=== PATIENT | male | born 1945 | race Caucasian/White ===

== ENCOUNTER → 2016-07-24 08:55 | Outpatient (CLI) | payer MEDICARE ==
[2015-03-02 08:50] VITALS: BMI 33.5
[~2016-07-24 08:55] MED LIST: CELEBREX200 MG PO; CRESTOR20 MG PO; GLUCOPHAGE500 MG PO; HYDROCODONE-APA1 TAB PO; LANTUS INSULIN10 ML SC; METOPROLOL TAR100 M1 PO
== END | disposition home or self-care (01) ==
LOC: D.CT 08:55
DX: I73.9 Peripheral vascular disease, unspecified (principal)

== ENCOUNTER → 2017-03-25 09:49 | Outpatient (CLI) | payer MEDICARE ==
[2015-03-02 08:50] VITALS: BMI 33.5
[2017-03-25 10:59] LABS: ANION GAP 11.8 mmol/L (8-16); CALCIUM 9.3 mg/dL (8.5-10.1); CARBON DIOXIDE 29.3 mmol/L (21.0-32.0); CREATININE - SERUM 1.1 mg/dL (0.6-1.3); POTASSIUM - SERUM 4.1 mmol/L (3.5-5.1)
== END | disposition home or self-care (01) ==
LOC: D.MRI 09:49
PROVIDERS: Family Medicine
DX: N08 Glomerular disorders in diseases classified elsewhere (principal); R42 Dizziness and giddiness

== ENCOUNTER → 2018-01-19 07:36 | Outpatient (CLI) | payer MEDICARE ==
[2015-03-02 08:50] VITALS: BMI 33.5
== END | disposition home or self-care (01) ==
LOC: D.CT 07:36
DX: R16.0 Hepatomegaly, not elsewhere classified (principal)

== ENCOUNTER → 2018-02-17 13:36 | Outpatient (CLI) | payer MEDICARE ==
[2015-03-02 08:50] VITALS: BMI 33.5
[~2018-02-17 13:36] MED LIST changes: +HUMULIN N100 U/ML SC; +HYDROCODON-ACE1 EAC7 PO; +OXYCODONE-APAP1 TAB PO; +PRINIVIL10 MG PO
== END | disposition home or self-care (01) ==
LOC: D.CT 13:36
DX: I70.219 Atherosclerosis of native arteries of extremities with intermittent claudication, unspecified extremity (principal)

== ENCOUNTER 2018-02-18 06:20 | Day surgery (SDC) | payer MEDICARE ==
[2018-02-17 14:34] LABS: HEMATOCRIT 43.9 % (42.0-54.0); HEMOGLOBIN 15.3 g/dL (13.5-17.5); MCH 28.6 pg (26.0-34.0); MCHC 34.9 g/dL (31.0-37.0); MCV 82.1 fL (80.0-100.0); MEAN PLATELET VOLUME 10.1 fL (7.4-10.4); RBC 5.35 10x6/uL (4.20-6.10); RDW 13.1 % (11.5-14.5); WBC 8.5 10x3/uL (4.8-10.8)
[2018-02-17 14:48] LABS: CALC OSMOLALITY 278 mosm/kg (275-300); CALCIUM 9.4 mg/dL (8.5-10.1); CARBON DIOXIDE 22.6 mmol/L (21.0-32.0); CHLORIDE - SERUM 99 mmol/L (98-107); CREATININE - SERUM 0.9 mg/dL (0.6-1.3); POTASSIUM - SERUM 4.1 mmol/L (3.5-5.1); SODIUM 132 mmol/L (136-145); UREA NITROGEN 21 mg/dL (7-18); eGFR NON AFRICAN AMERICAN 88 mL/min (90-120)
[2018-02-17 14:50] LABS: GLUCOSE 303 mg/dL (74-106)
[~2018-02-18] VITALS: Ht 172.7 cm; Wt 96.2 kg
[~2018-02-18 06:20] MED LIST changes: -HYDROCODON-ACE1 EAC7 PO; -PRINIVIL10 MG PO
[2018-02-18 07:38] VITALS: BP 133/74; Ht 172.7 cm; Wt 96.2 kg
[2018-02-18] MEDS ORDERED: PRINIVIL10 MG PO (07:56)
[2018-02-18] MEDS ORDERED: HYDROCODON-ACE1 EAC7 PO (10:11)
== END 2018-02-18 14:10 | disposition home or self-care (01) ==
LOC: D.PAN 06:20 → D.OPS 09:30 → D.PAN 14:10
PROVIDERS: Anesthesiology
DX: K80.10 Calculus of gallbladder with chronic cholecystitis without obstruction (principal); K76.0 Fatty (change of) liver, not elsewhere classified; Z01.812 Encounter for preprocedural laboratory examination

== ENCOUNTER 2018-03-03 10:43 | Outpatient (CLI) | payer MEDICARE ==
[~2018-03-03] VITALS: Ht 172.7 cm; Wt 97.3 kg
--- NOTE | ~2018-03-03 | OP ---
PATIENT NAME: CRISTIAN VENEGAS MEDICAL RECORD: [id number] :47 LOCATION:D.CAT ADMISSION DATE: SURGEON: ANIL GASCA MD DATE OF OPERATION: 03/03/2018 PROCEDURE: AFRO DESCRIPTION: Right femoral artery was cannulated via modified Seldinger technique. The pigtail catheter was placed just superior to the level of the renal arteries. Abdominal aortofemoral runoff was performed, nonselective. Renal artery showed no significant stenosis. The aorta itself showed no evidence of dissection and no evidence of aneurysm. Iliac system; right internal iliac system shows calcified wall disease with no flow obstructive stenosis. Right common, deep, and superficial femoral artery all shows wall disease with some calcification, but no significant stenosis and 2-vessel runoff. Left system; left iliac system including internal and external showed no evidence of significant stenosis. Left femoral system; left deep and common femoral system shows no evidence of stenosis. Left superficial shows marked calcification and wall disease with no stenosis being greater than 40%. There is good 2-vessel runoff as well. IMPRESSION: Obstructive peripheral vascular disease. Suspect pain is neuropathic in origin. TRANSINT:[id number] Voice Confirmation ID: [id number] DOCUMENT ID: [id number] ANIL GASCA MD CC: [id number] DICTATION DATE: 03/03/18 1348 STAFFING EXECUTIVE: 03/03/18 1628 DEP CLI 03/03/18 [address] [place] [address]
--- NOTE | ~2018-03-03 | HEMODYNAMI ---
PATIENT:CRISTIAN VENEGAS MEDICAL RECORD: [id number] : 47 LOCATION:D.CAT ADMISSION DATE: 03/03/18 Generatedon:03/03/201813:41 Patient name: CRISTIAN VENEGAS Patient #: [id number] SSN: DO B: 1945 Date of study: 03/03/2018 Page: Of Hemodynamic Procedure Report Patient Data Patient Demographics Procedure consent was obtained First Name: CRISTIAN Gender: Male Last Name: RUBI : 1945 Middle Initial: DERECK Age: 72 year(s) Patient #: [id number] Race: Unknown Additional ID: [id number] Contact details Address: [address] [address] State: [place] City: [place] Zip code: [address] Past Medical History Allergies Allergen Reaction Date Comments Reported Penicillins 03/03/2018 Admission Admission Data Admission Date: 03/03/2018 Admission Time: 10:43 Height (in.): 68 BSA: 2.1 (m2) Height (cm.): 172.72 BMI: 32.23 (kg/m2) Weight (lbs.): 212 Weight (kg.): 96.16 Procedure Procedure Types Cath Procedure Peripheral Cath Diagnostic Procedure Accounts Manager Peripheral Procedures Gmwqg-Ezlaipx-Lcd-Off Procedure Description Procedure Date Procedure Date: 03/03/2018 Procedure Start Time: 13:31 Procedure End Time: 13:38 Procedure Staff Name Function Rob Johnson MD Performing Physician Era Kinney RT Monitor Milana Soto RT Scrub Sanjay Mitchell RN Nurse Procedure Data Cath Procedure Fluoroscopy Diagnostic fluoroscopy Total fluoroscopy Time: 0.2 time: 0.2 min min Diagnostic fluoroscopy Total fluoroscopy dose: 87 dose: 87 mGy mGy Contrast Material Contrast Material Type Amount (ml) Isovue 300 48 Entry Location Entry Primary Successful Side Size Upsize Upsize Entry Closure Succes sful Closure Location (Fr) 1 (Fr) 2 (Fr) Remarks Device Remarks Femoral Right 5 Fr Exoseal artery Estimated blood loss: 10 ml Diagnostic catheters Device Type Used For End Catheter Placement DIAGNOSTIC UF 5Fr Abdominal catheter ([id number]) aortogram with runoff Procedure Complications No complications Procedure Medications Medication Administration Route Dosage 0.9% NaCl I.V. 100 ml/hr Oxygen etCO2 Nasal cannula 2 l/min Heparin Flush Bag added to field 2 bags (1000units/500ml NS) Lidocaine 2% added to field 20 Versed I.V. 2 mg Fentanyl I.V. 100 mcg Versed I.V. 1 mg Hemodynamics Rest BSA: 2.1 (m2) O2 Consumption: Estimated: 268.63 (ml/min) O2 Consumption indexed: Estimated:127.92 (ml/min/m) Heart Rate: 103 (bpm) Snapshots Pre Cath Intra NCS Post Cath Vital Signs Time Heart Resp SPO2 etCO2 NIBP (mmHg) Rhythm Pain Sedation Rate (ipm) (%) (mmHg) Status Level (bpm) 13:20:22 101 15 99 33.2 139/86(112) NSR 0 (11) 10(A) , No pain 13:24:30 101 13 99 34.7 150/91(116) NSR 0 (11) 10(A) , No pain 13:28:40 101 15 99 37 143/87(108) NSR 0 (11) 10(A) , No pain 13:32:48 101 14 99 37.7 135/87(108) NSR 0 (11) 10(A) , No pain 13:36:56 104 19 100 30.9 149/88(109) NSR 0 (11) 10(A) , No pain Medications Time Medication Route Dose Verified Delivered Reason Notes Eff ectiveness by by 13:18:43 0.9% NaCl I.V. 100 Sanjay Sanjay Per ml/hr Stephen Mitchell physician RN RN 13:18:52 Oxygen etCO2 2 Sanjay Sanjay Per Nasal l/min Loryeni Mitchell physician cannula RN RN 13:19:05 Heparin Flush added 2 Sanjay Sanjay used for Bag to bags Sueigan Stephen procedure (1000units/500ml field RN RN NS) 13:19:16 Lidocaine 2% added 20ml Sanjay Sanjay for local to vial Lorigan Lorigan anesthetic field RN RN 13:25:27 Versed I.V. 2 mg Sanjay Sanjay for Lorigan Lorigan sedation RN RN 13:25:40 Fentanyl I.V. 100 Sanjay Sanjay for mcg Stephen Mitchell sedation RN RN 13:30:41 Versed I.V. 1 mg Sanjay Grace for Stephen Mitchell sedation RN digital marketing lead Log Time Note 12:55:50 Sanjay Mitchell RN sent for patient. Start room use. 13:00:42 Time tracking: Regular hours (M-F 7:00 - 5:00) 13:00:46 Plan of Care:Hemodynamics will remain stable., Cardiac rhythm will remain stable., Comfort level will be maintained., Respiratory function will remain adequate., Patient/ family verbilizes understanding of procedure., Procedure tolerated without complication., Recovers from procedure without complications.. 13:00:47 Diagnostic Cath status Elective 13:00:48 Signed procedure consent form obtained from patient. 13:01:13 H&P Date Dictated: 02/05/2018 Within 30 days and on chart., H&P Addendum completed by physician on day of procedure. (MUST COMPLETE FOR ALL OUTPATIENTS). 13:01:29 Patient allergic to Penicillins 13:01:36 Patient Height : 68 inches 13:01:39 Patient Weight : 212 lbs 13:07:28 Patient received from Pre/Post Procedure Room to [facility] 2 Alert and oriented. Tansferred to table in Supine position. 13:07:29 Warm blankets applied, and spencer hugger turned on for patient comfort. 13:07:29 Correct patient and procedure confirmed by team. 13:07:31 ECG and BP/O2 sat monitors applied to patient. 13:18:43 0.9% NaCl 100 ml/hr I.V. was administered by Sanjay Mitchell RN; Per physician; 13:18:52 Oxygen 2 l/min etCO2 Nasal cannula was administered by Sanjay Mitchell RN; Per physician; 13:19:05 Heparin Flush Bag (1000units/500ml NS) 2 bags added to field was administered by Sanjay Mitchell RN; used for procedure; 13:19:16 Lidocaine 2% 20ml vial added to field was administered by Sanjay Mitchell RN; for local anesthetic; 13:19:20 Vital chart was started 13:21:56 Baseline sample Acquired. 13:22:02 Rhythm: sinus rhythm 13:22:04 Full Disclosure recording started 13:22:09 Patient NPO since Midnight. 13:22:13 Is the patient allergic to Iodine/contrast media? No. 13:22:29 Patient diabetic? Yes. 13:22:31 If diabetic: On Metformin? Yes 13:22:35 If on Metformin: Last Dose? 02/27/2018 13:22:46 Snore? No 13:22:48 Sleep apnea? No 13:22:55 Dentures? Yes out 13:23:10 IV patent on arrival in left forearm with 0.9% NaCl at [facility]. 13:23:14 Lab results completed and on chart. 13:23:20 Bilateral groins area was prepped with chlora-prep and draped in sterile fashion 13:23:21 Alarms reviewed by R. N. 13:23:21 Sharps counted by scrub and verified by R.N. 13:23:22 Physician paged 13:23:23 Physician arrived 13:23:25 --------ALL STOP TIME OUT------ 13:23:26 Final Timeout: patient, procedure, and site verified with staff and physician. All members of the team are in agreement. 13:23:28 Bilateral groins site verified by team. 13:23:32 Physical assessment completed. ASA score P 2 - A patient with mild systemic disease as per Rob Johnson MD. 13:23:35 Sedation plan: IV Moderate Sedation Medication:Versed, Fentanyl 13:25:27 Versed 2 mg I.V. was administered by Sanjay Mitchell RN; for sedation; 13:25:40 Fentanyl 100 mcg I.V. was administered by Sanjay Mitchell RN; for sedation; 13:27:08 Use device set Femoral Dx 13:27:10 ACIST Syringe (01598) opened to sterile field. 13:27:11 Bag Decanter (2002) opened to sterile field. 13:27:12 Medline Cath Pack ([id number]) opened to sterile field. 13:27:13 DIAGNOSTIC WIRE .035 260cm J wire (536861) opened to sterile field. 13:27:14 ACIST Hand Control (70198) opened to sterile field. 13:27:15 ACIST Manifold (94870) opened to sterile field. 13:27:21 Tegaderm 4 x 4 (1626W) opened to sterile field. 13:27:25 SHEATH 5FR [place] (VAB924) opened to sterile field. 13:29:41 Procedure started. 13:30:41 Versed 1 mg I.V. was administered by Sanjay Mitchell RN; for sedation; 13:31:00 Local anesthetic to right femoral artery with Lidocaine 2% by Rob Johnson MD.INITIAL ACCESS ONLY 13:31:20 A 5 Fr sheath was inserted into the Right Femoral artery 13:32:07 A DIAGNOSTIC UF 5Fr catheter ([id number]) was advanced over the wire and used for Abdominal aortogram with runoff. 13:34:47 Abdominal angiogram w/ runoff was performed. 13:34:51 Left leg runoff performed. 13:34:52 Right leg runoff performed. 13:35:16 EXOSEAL 5Fr (EX500) opened to sterile field. 13:35:26 Sheath removed intact; hemostasis achieved with Exoseal to the Right Femoral artery. 13:35:30 Procedure ended.(Physican Out) 13:35:46 Fluoroscopy time 00.20 minutes. 13:35:50 Fluoroscopy dose: 87 mGy 13:35:50 Flurop Dose total: 87 13:35:54 Contrast amount:Isovue 300 48ml. 13:35:56 Sharps counted by scrub and verified by R.N. 13:36:17 Insertion/operative site no bleeding no hematoma. 13:36:21 Post-op/insertion site Right Femoral artery dressed using a 4 x 4 and Tegaderm. 13:36:22 Post Procedure Pulses reassessed and unchanged 13:36:27 Post-procedure physical assessment completed. ASA score P 2 - A patient with mild systemic disease as per Rob Johnson MD. 13:36:30 Post procedure rhythm: unchanged. 13:36:33 Estimated blood loss: 10 ml 13:36:35 Post procedure instruction explained to patient.Patient verbalizes understanding. 13:36:45 Procedure and supply charges have been captured, reviewed, submitted and are correct. 13:37:56 Procedure Complication : No complications 13:37:59 Vital chart was stopped 13:38:00 See physician's report for complete and final results. 13:38:08 Report given to Pre/Post Procedure Room. 13:38:11 Patient transfered to Pre/Post Procedure Room with Stretcher. 13:38:14 Procedure ended. 13:38:14 Full Disclosure recording stopped 13:38:20 End room use (Document Last) Device Usage Item Name Manufacture Quantity Catalog Hospital Part Current Minimal L ot# / Number Charge Number Stock Stock Serial# Code ACIST Acist 1 [id number] 534647 [id number] 20 Syringe Medical (98970) Systems Inc Bag Microtek 1 2001S [id number] 44508 254331 5 Decanter Medical Inc. () Medline Medline 1 [id number] 955385 54210 150173 5 Cath Pack ([id number]) DIAGNOSTIC St Cedric 1 764311 799573 948270 220203 30 WIRE .035 260cm J wire (052224) ACIST Hand Acist 1 12882 300118 894628 211698 5 Control Medical (51972) Systems Inc ACIST Acist 1 11523 308702 192913 780590 5 Manifold Medical (03182) Systems Inc Tegaderm 4 3M 1 1626W 432298 029464 242766 5 x 4 (1626W) SHEATH 5FR Terumo 1 [id number] 537624 498247 517972 5 [place] (HLA226) DIAGNOSTIC Cardinal 1 [id number] 296803 719169 552189 10 UF 5Fr Health catheter (348023F8) EXOSEAL 5Fr Cardinal 1 EX500 549947 097554 638502 10 (EX500) Health Signature Audit [place] Stage Time Signature Unsigned Intra-Procedure 03/03/2018 Era Kinney 1:41:18 PM RT(R) Signatures Monitor : Era Kinney Signature : RT Date : Time : [facility] [address] [facility] [place] [address]
[~2018-03-03 10:43] MED LIST changes: +HYDROCODON-ACE1 EAC7 PO; +PRINIVIL10 MG PO
[2018-03-03] MEDS ORDERED: PROTONIX40 MG PO (11:13)
[2018-03-03] MEDS ORDERED: CELEBREX200 MG (11:14)
[2018-03-03] MEDS ORDERED: CRESTOR20 MG PO (11:15)
[2018-03-03] MEDS ORDERED: CYCLOBENZAPRINE10 MG PO (11:16)
[2018-03-03 11:26] VITALS: BP 159/85; Ht 172.7 cm; Wt 97.3 kg
[2018-03-03 11:33] LABS: BASOPHILS 0.6 % (0-2); EOSINOPHILS 5.1 % (0-7); HEMOGLOBIN 14.9 g/dL (13.5-17.5); IMMATURE GRANULOCYTES 0.8 % (0-5); LYMPHOCYTES 29.4 % (15-50); MCH 28.4 pg (26.0-34.0); MCHC 34.7 g/dL (31.0-37.0); MCV 82.1 fL (80.0-100.0); MEAN PLATELET VOLUME 9.9 fL (7.4-10.4); MONOCYTES 6.7 % (2-11); NEUTROPHILS 57.4 % (40-80); RBC 5.24 10x6/uL (4.20-6.10); RDW 13.3 % (11.5-14.5); WBC 9.1 10x3/uL (4.8-10.8)
[2018-03-03 11:34] LABS: PLATELET COUNT 245 10x3/uL (130-400)
[2018-03-03 11:47] LABS: CALC OSMOLALITY 276 mosm/kg (275-300); CARBON DIOXIDE 27.9 mmol/L (21.0-32.0); CHLORIDE - SERUM 101 mmol/L (98-107); CREATININE - SERUM 0.9 mg/dL (0.6-1.3); GLUCOSE 121 mg/dL (74-106); POTASSIUM - SERUM 3.7 mmol/L (3.5-5.1); SODIUM 138 mmol/L (136-145); UREA NITROGEN 12 mg/dL (7-18); eGFR NON AFRICAN AMERICAN 88 mL/min (90-120)
== END 2018-03-03 15:55 | disposition home or self-care (01) ==
LOC: D.CATH 10:43
PROVIDERS: Internal Medicine Interventional Cardiology
DX: I70.203 Unspecified atherosclerosis of native arteries of extremities, bilateral legs (principal); Z01.812 Encounter for preprocedural laboratory examination

== ENCOUNTER → 2018-04-23 10:41 | Outpatient (CLI) | payer MEDICARE ==
[2018-03-03 11:26] VITALS: BMI 32.6
[~2018-04-23 10:41] MED LIST changes: +CELEBREX200 MG; +CYCLOBENZAPRINE10 MG PO; +PROTONIX40 MG PO
== END | disposition home or self-care (01) ==
LOC: D.CT 10:41
DX: R91.8 Other nonspecific abnormal finding of lung field (principal)

== ENCOUNTER 2018-06-30 10:51 | Day surgery (SDC) | payer MEDICARE ==
[~2018-06-30] VITALS: Ht 172.7 cm; Wt 91.8 kg
--- NOTE | ~2018-06-30 | HP ---
PATIENT: CRISTIAN VENEGAS MEDICAL RECORD: [id number] ACCOUNT: [id number] LOCATION:OmarDaveJERROD : 47 ADMISSION DATE: 06/30/18 PCP: RODRIGO KELLY DO HISTORY AND PHYSICAL EXAMINATION HISTORY OF PRESENT ILLNESS: The patient is here for colonoscopy. The patient was found to have a complex polyp in the proximal transverse colon, distance from 70 to 75 cm from the anus. Cold biopsies revealed a tubulovillous adenoma. The patient was referred to me. I am going to plan for colonoscopy and polypectomy, perhaps utilizing the endoscopic mucosal resection technique or the argon plasma granite setter or both. The risks, possible complications and alternatives to the procedure were explained to the patient. He elects to proceed. HOME MEDICATIONS: Please see the nursing list. ALLERGIES: PENICILLIN, GABAPENTIN, LYRICA. SOCIAL HISTORY: Ex-smoker. PAST MEDICAL AND SURGICAL HISTORY: Hypertension, CABG, gastroesophageal reflux, insulin-dependent diabetes mellitus, arthritis. PHYSICAL EXAMINATION: GENERAL: The patient does not appear acutely ill. He does not appear chronically ill. VITAL SIGNS: Reviewed. EARS: External ears appear normal. EYES: Extraocular movements are intact. NECK: Trachea is midline. CHEST: No intercostal retractions. PULMONARY: Nonlabored, no stridor. IMPRESSION: History of complex polyp involving the proximal transverse colon. PLAN: As described above. TRANSINT:[id number] Voice Confirmation ID: [id number] DOCUMENT ID: [id number] ANN MARIE PATRICK MD CC: RODRIGO KELLY DO and JESUS THOMAS DO [id number] DICTATION DATE: 06/30/18 1417 FEEDER OPERATOR AUTOMATIC: 06/30/18 1429 [address] [place] [address]
--- NOTE | ~2018-06-30 | OP ---
PATIENT NAME: CRISTIAN VENEGAS MEDICAL RECORD: [id number] :47 LOCATION:D.OPS ADMISSION DATE: SURGEON: ANN MARIE PATRICK MD DATE OF OPERATION: 06/30/2018 PREOPERATIVE DIAGNOSIS: History of complex colon polyp in the proximal transverse colon. POSTOPERATIVE DIAGNOSES: History of complex colon polyp in the proximal transverse colon with a secondary polyp in the descending colon that was a 1.2 cm sessile polyp. PROCEDURES: 1. Total colonoscopy to cecum. 2. Polypectomy utilizing the endoscopic mucosal resection technique of a 3.0 cm polyp on a fold. There was epinephrine submucosal injection as well as injection of Eleview and placement of 3 clips for hemostasis. 3. Hot biopsy forceps, polypectomy times 1. SURGEON: Ann Marie Patrick MD COTTON OPENER: None. BLOOD LOSS: Minimal. ANESTHESIA: IV sedation. COMPLICATIONS: None. The risks, possible complications and alternatives to the procedure were explained to the patient. He elects to proceed. ENDOSCOPIC COURSE: The patient was conveyed to endoscopy suite electively on 06/30/2018. IV sedation was induced by the anesthesia staff. The patient was placed in the Mora position. A digital rectal examination was performed. 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 The colonoscope was advanced easily to the cecum. The prep was marginal. I then slowly withdrew the endoscope. I irrigated and aspirated. The pullback was greater than a 30-minute pullback. I dragged the folds. I noted the tattooed polyp in the proximal transverse colon. I advanced a sclerotherapy needle. A submucosal injection of epinephrine was performed for post-procedural hemostasis. Through the sclerotherapy needle, I then injected Eleview to get the polyp to lift away and there was a good lift to the polyp under this Eleview pillow. An endoscopic snare was advanced. I snared the polyp in its entirety utilizing a snare twice. I then utilized the argon plasma car porter to ablate a tiny bit of polypoid tissue that remained. This was utilizing the argon plasma car porter with the right colon setting in the forced mode. I then set down a row of 3 endoscopic clips for hemostasis. I then gathered up the portion of the polyp with an endoscopic retrieval net and withdrew them out through the anus. I then readvanced the endoscope up through the anus and back to the polypectomy site. I then slowly withdrew the endoscope. I noted a secondary polyp in the descending colon and this was removed in its entirety utilizing the hot biopsy forceps polypectomy technique. The endoscope was then withdrawn under direct vision. OPERATIVE REPORT [id number] CRISTIAN VENEGAS I am going to see the patient in my office in 2-3 weeks. I will plan for his next colonoscopy to take place in 1 year. TRANSINT:[id number] Voice Confirmation ID: [id number] DOCUMENT ID: [id number] ANN MARIE PATRICK MD CC: RODRIGO KELLY DO and JESUS THOMAS DO [id number] DICTATION DATE: 06/30/18 1524 B2B APPOINTMENT SETTER: 06/30/18 1618 [facility] [place] 06/30/18 [id number] [place] [address]
[2018-06-30 11:12] LABS: HEMATOCRIT 45.4 % (42.0-54.0); HEMOGLOBIN 15.7 g/dL (13.5-17.5); MCH 28.5 pg (26.0-34.0); MCHC 34.6 g/dL (31.0-37.0); MCV 82.5 fL (80.0-100.0); MEAN PLATELET VOLUME 10.2 fL (7.4-10.4); RBC 5.5 10x6/uL (4.20-6.10); RDW 13.3 % (11.5-14.5); WBC 9.2 10x3/uL (4.8-10.8)
[2018-06-30 11:21] LABS: ANION GAP 12.2 mmol/L (8-16); CALCIUM 9.3 mg/dL (8.5-10.1); CARBON DIOXIDE 29.1 mmol/L (21.0-32.0); CREATININE - SERUM 1.3 mg/dL (0.6-1.3); POTASSIUM - SERUM 4.3 mmol/L (3.5-5.1)
[2018-06-30 11:53] VITALS: BP 125/72; Ht 172.7 cm; Wt 91.8 kg
--- NOTE | 2018-06-30 14:56 | NUR ---
1450-INJECTED 10CC ELEVIEW CUTANEOUS IN COLON.
--- NOTE | 2018-06-30 16:14 | NUR ---
DC INSTRUCTIONS GIVEN TO PT/JOSE, STATE UNDERSTANDIG. DC'D IV CATH FULLY INTACT.
--- NOTE | 2018-06-30 16:19 | NUR ---
PT LEFT UNIT VIA WC AT 1620
== END 2018-06-30 16:20 | disposition home or self-care (01) ==
LOC: D.OPS 10:51
PROVIDERS: Anesthesiology; ATTEND Surgery
DX: D12.3 Benign neoplasm of transverse colon (principal); D12.4 Benign neoplasm of descending colon; Z01.812 Encounter for preprocedural laboratory examination

== ENCOUNTER → 2018-08-07 07:35 | Outpatient (CLI) | payer MEDICARE ==
[2018-06-30 11:53] VITALS: BMI 30.7
== END | disposition home or self-care (01) ==
LOC: D.NM 07:35
PROVIDERS: ATTEND Internal Medicine Gastroenterology
DX: R10.9 Unspecified abdominal pain (principal); R11.0 Nausea; R14.0 Abdominal distension (gaseous)

== ENCOUNTER 2018-10-11 15:55 | Emergency (ER) | payer MEDICARE, MEDICAID ==
[~2018-10-11] VITALS: Ht 172.7 cm; Wt 94.5 kg
[2018-10-11 15:56] VITALS: Ht 172.7 cm; Wt 94.5 kg
[2018-10-11 16:19] LABS: BASOPHILS 0.5 % (0-2); EOSINOPHILS 2.4 % (0-7); HEMATOCRIT 42.2 % (42.0-54.0); IMMATURE GRANULOCYTES 0.9 % (0-5); LYMPHOCYTES 34.2 % (15-50); MCH 28.8 pg (26.0-34.0); MCHC 35.5 g/dL (31.0-37.0); MONOCYTES 6.1 % (2-11); NEUTROPHILS 55.9 % (40-80); PLATELET COUNT 223 10x3/uL (130-400); RBC 5.21 10x6/uL (4.20-6.10); RDW 13.2 % (11.5-14.5)
[2018-10-11 16:41] LABS: ALBUMIN 3.6 g/dL (3.4-5.0); ANION GAP 16.1 mmol/L (8-16); BILIRUBIN - TOTAL 0.99 mg/dL (0.2-1.3); CALCIUM 8.7 mg/dL (8.5-10.1); CREATININE - SERUM 1.4 mg/dL (0.6-1.3); POTASSIUM - SERUM 4.1 mmol/L (3.5-5.1); PROTEIN - SERUM 8.1 g/dL (6.4-8.2)
[2018-10-11 16:42] LABS: APPEARANCE CLEAR (CLEAR); COLOR YELLOW (YELLOW); NITRITE NEGATIVE (NEGATIVE); PROTEIN NEGATIVE (NEGATIVE)
[2018-10-11 16:43] LABS: BILIRUBIN NEGATIVE (NEGATIVE); GLUCOSE 1000 mg/dL (NEGATIVE); KETONE NEGATIVE (NEGATIVE); UROBILINOGEN NORMAL (NORMAL)
[2018-10-11 18:15] VITALS: BP 157/90
[2018-10-11] MEDS ORDERED: ZPAK PO (18:25)
[2018-10-11] MEDS ORDERED: TESSALON PERLE100 MG PO (18:25)
== END 2018-10-11 19:03 | disposition home or self-care (01) ==
LOC: D.ER 15:55
PROVIDERS: Family Medicine
DX: J40 Bronchitis, not specified as acute or chronic (principal); E11.65 Type 2 diabetes mellitus with hyperglycemia; Z79.4 Long term (current) use of insulin

== ENCOUNTER 2018-10-19 14:09 | Inpatient (IN) | payer MEDICARE, MEDICAID ==
[~2018-10-19] VITALS: Ht 172.7 cm; Wt 94.3 kg
[~2018-10-19 14:09] MED LIST changes: +TESSALON PERLE100 MG PO; +ZPAK PO
[2018-10-19] MEDS ORDERED: CELEBREX 100 M100 MG PO (14:23)
--- NOTE | 2018-10-19 14:32 | NUR ---
ARRIVE TO ROOM 2237 AWAKE AND ALERT. RESP EVEN AND UNLABORED WITH NO DISTRESS NOTED. CAN EXPRESS NEEDS AND WANTS. NO C/O NOTED OR VOICED. C/O RICHARD FEET PAIN RATING 8/10 ON PAIN SCALE. C/L IN REACH AT BEDSIDE.
[2018-10-19 14:54] LABS: BASOPHILS 0.3 % (0-2); EOSINOPHILS 1.1 % (0-7); HEMATOCRIT 37.6 % (42.0-54.0); HEMOGLOBIN 13.2 g/dL (13.5-17.5); IMMATURE GRANULOCYTES 1.6 % (0-5); LYMPHOCYTES 23.2 % (15-50); MCH 28.4 pg (26.0-34.0); MCHC 35.1 g/dL (31.0-37.0); MCV 80.9 fL (80.0-100.0); MEAN PLATELET VOLUME 9.6 fL (7.4-10.4); MONOCYTES 8.9 % (2-11); NEUTROPHILS 64.9 % (40-80); RBC 4.65 10x6/uL (4.20-6.10); RDW 13.1 % (11.5-14.5); WBC 11.3 10x3/uL (4.8-10.8)
[2018-10-19 15:18] LABS: ANION GAP 17.2 mmol/L (8-16); BILIRUBIN - TOTAL 0.68 mg/dL (0.2-1.3); CALCIUM 7.9 mg/dL (8.5-10.1); CARBON DIOXIDE 21.7 mmol/L (21.0-32.0); CREATININE - SERUM 1.2 mg/dL (0.6-1.3); POTASSIUM - SERUM 3.9 mmol/L (3.5-5.1); PROTEIN - SERUM 7.1 g/dL (6.4-8.2)
[2018-10-19 15:24] LABS: PLATELET COUNT 287 10x3/uL (130-400)
[2018-10-19 17:42] VITALS: BP 144/78; BMI 31.6
--- NOTE | 2018-10-19 18:30 | NUR ---
ALERT AND ORIENTED, RESTING IN BED. NO C/O PAIN. NO S/S OF ACUTE DISTRESS NOTED. PT DENIES ANY NEEDS AT THIS TIME. CALL LIGHT IN REACH. WILL CONTINUE TO MONITOR.
--- NOTE | 2018-10-19 20:00 | NUR ---
ALERT RESTING IN BED FAMILY AT BEDSIDE, REDDENED AREA NOTED TO LEFT OUTER FOOT, REPORTS PAINFUL, SEE SHIFT ASSESSMENT, CALL LIGHT IN REAC
[2018-10-19 21:44] VITALS: BP 123/67
[2018-10-20 01:11] VITALS: BP 93/50
[2018-10-20 05:08] LABS: BASOPHILS 0.4 % (0-2); EOSINOPHILS 2.6 % (0-7); HEMATOCRIT 35.7 % (42.0-54.0); HEMOGLOBIN 12.4 g/dL (13.5-17.5); IMMATURE GRANULOCYTES 1.7 % (0-5); MCH 28.2 pg (26.0-34.0); MCHC 34.7 g/dL (31.0-37.0); MCV 81.3 fL (80.0-100.0); MEAN PLATELET VOLUME 9.7 fL (7.4-10.4); NEUTROPHILS 55.3 % (40-80); PLATELET COUNT 267 10x3/uL (130-400); RBC 4.39 10x6/uL (4.20-6.10); RDW 13.2 % (11.5-14.5)
[2018-10-20 05:18] LABS: ALBUMIN 2.3 g/dL (3.4-5.0); ANION GAP 12.9 mmol/L (8-16); BILIRUBIN - TOTAL 0.71 mg/dL (0.2-1.3); CALCIUM 7.7 mg/dL (8.5-10.1); CARBON DIOXIDE 24.9 mmol/L (21.0-32.0); CREATININE - SERUM 1.1 mg/dL (0.6-1.3); POTASSIUM - SERUM 3.8 mmol/L (3.5-5.1); PROTEIN - SERUM 6.3 g/dL (6.4-8.2)
[2018-10-20 05:19] LABS: WBC 8.3 10x3/uL (4.8-10.8)
[2018-10-20 06:23] VITALS: BP 114/59
--- NOTE | 2018-10-20 07:20 | NUR ---
ALERT AND ORIENTED. NO C/O PAIN. NO S/S OF ACUTE DISTRESS NOTED. REDNESS AND WARMTH TO LEFT FOOT. IV TO LEFT FOREARM, NS INFUSING @ 50ML/HR. SITE PATENT WITHOUT REDNESS OR SWELLING. PT ACHS. ON TELEMETRY 101 ST. PT DENIES ANY NEEDS AT THIS TIME. CALL LIGHT IN REACH. WILL CONTINUE TO MONITOR.
[2018-10-20 08:14] LABS: APPEARANCE CLEAR (CLEAR); BILIRUBIN NEGATIVE (NEGATIVE); COLOR YELLOW (YELLOW); GLUCOSE 500 mg/dL (NEGATIVE); KETONE NEGATIVE (NEGATIVE); NITRITE NEGATIVE (NEGATIVE); PROTEIN NEGATIVE (NEGATIVE); SPECIFIC GRAVITY 1.015 (1.005-1.020)
[2018-10-20 08:56] VITALS: BP 115/59
[2018-10-20 12:03] VITALS: BP 91/48
--- NOTE | 2018-10-20 13:32 | NUR ---
PT IS WITHOUT DISTRESS.FAMILY AT BEDSIDE
[2018-10-20 14:30] VITALS: Ht 172.7 cm; Wt 94.3 kg
--- NOTE | 2018-10-20 14:37 | MORECARE ---
CASE MANAGEMENT DISCHARGE SUMMARY PATIENT: CRISTIAN VENEGAS DON UNIT: [id number] ADM DATE: 10/19/18 AGE: 73 : 47 SEX: M ROOM/BED: D.2237 AUTHOR: KIMI OSUNA PHYSICIAN: REFERRING PHYSICIAN: TAMMY NEIL MD DATE OF SERVICE: 10/20/18 Discharge Plan Patient Name: CRISTIAN VENEGAS [facility] [facility] 1945 Planned Disposition: Home with Home Health Anticipated Discharge Date: Discharge Date: Expected LOS: Initial Reviewer: [email or web address] Initial Review Date: 10/21/2018 Generated: 10/20/18 3:37 pm DCPIA - Discharge Planning Initial Assessment Updated by [email or web address]: Lore Hernandez on 10/20/18 2:32 pm * Is the patient Alert and Oriented? Yes * How many steps to enter\exit or inside your home? 5/0 * PCP Dr. Sesay * Pharmacy [facility] on [address] * Preadmission Environment Home Alone * ADLs Independent * Equipment Cane Glucometer Power Chair or Electric Scooter Wheelchair * List name and contact numbers for known caregivers / representatives who currently or will assist patient after discharge: Shavonne Wagner [facility] - [phone] [facility] [phone] * Verbal permission to speak to the caregivers and representatives has been obtained from the patient. Yes * Community resources currently utilized None * Additional services required to return to the preadmission environment? No * Can the patient safely return to the preadmission environment? Yes * Has this patient been hospitalized within the prior 30 days at any hospital? No Patient Name: CRISTIAN VENEGAS Page [id number] at 1437 All edits/amendments must be made on the electronic document DICTATION DATE: 10/20/181436 SPOTTER DRIVER: ERICA 10/20/181436 RPT#: [id number] DC DATE: STATUS: ADM IN [facility] [address] [place] [address] END OF REPORT
--- NOTE | 2018-10-20 14:44 | MORECARE ---
CASE MANAGEMENT DISCHARGE SUMMARY PATIENT: CRISTIAN VENEGAS UNIT: [id number] ADM DATE: 10/19/18 AGE: 73 : 46 SEX: M ROOM/BED: D.2237 AUTHOR: ENRRIQUE,DOC PHYSICIAN: REFERRING PHYSICIAN: TAMMY NEIL MD DATE OF SERVICE: 10/20/18 Discharge Plan Patient Name: CRISTIAN VENEGAS Facility: [facility]:[place] : 1945 Planned Disposition: Home with Home Health Anticipated Discharge Date: Discharge Date: Expected LOS: Initial Reviewer: [email or web address] Initial Review Date: 10/21/2018 Generated: 10/20/18 3:44 pm Comments DCP- Discharge Planning Updated by [email or web address]: Lore Hernandez on 10/20/18 1:[address] Patient Name: CRISTIAN VENEGAS Admission Status: Elective Accout number: [id number] Admission Date: 10-19-2018 : 1945 Admission Diagnosis: Attending: TAMMY NEIL Current LOS: 1 Anticipated DC Date: Planned Disposition: Home with Home Health Primary Insurance: [facility] [employer] Discharge Planning Comments: CM met with patient to discuss discharge planning/needs, his 2 daughters and son in law are in the room and verbal permission received to discuss discharge planning with his family present. He lives at [address] [place] [address] in [place]. He has a cane, walker, and electric scooter that he states he does not use. He has a glucometer and checks his blood sugar 4 times a day. He lives alone and has been independent with all ADL's and AIDL's. He states that his family would like him to have home health. His daughter (Shavonne) states that he needs med box management and disease education. She states she doesn't feel like he eats "the right foods". PAUL for [facility] signed and clinical faxed. [facility] does not take his insurance, referral to [facility]. CM will continue to follow and assist with discharge planning/needs. Web Development Manager: Lore Hernandez DCPIA - Discharge Planning Initial Assessment Updated by [email or web address]: Lore Hernandez on 10/20/18 2:32 pm * Is the patient Alert and Oriented? Yes * How many steps to enter\\exit or inside your home? 5/0 * PCP Dr. Sesay * Pharmacy [facility] on [address] * Preadmission Environment Home Alone * ADLs Independent * Equipment Cane Glucometer Power Chair or Electric Scooter Wheelchair * List name and contact numbers for known caregivers / representatives who currently or will assist patient after discharge: Shavonne Wagner [facility] - [phone] Miranda Wagner [facility] - [phone] * Verbal permission to speak to the caregivers and representatives has been obtained from the patient. Yes * Community resources currently utilized None * Additional services required to return to the preadmission environment? No * Can the patient safely return to the preadmission environment? Yes * Has this patient been hospitalized within the prior 30 days at any hospital? No Coverage Notice Reviewer: [email or web address] Marly Hernandez Notice Issued Date-Time: 10/20/2018 14:42 Notice Type: Patient Choice Letter Notice Delivered To: Patient Relationship to Patient: Self Washing And Screening Plant Supervisor Name: Delivery Method: - Omayra Days: Prior Verbal Notification: Recipient Understood Notice: Recipient Signature: Med Rec Note Co-signed by Attending: Coverage Notice Comment: Last DP export: 10/20/18 1:37 p Patient Name: CRISTIAN VENEGAS Page [phone] at 1444 All edits/amendments must be made on the electronic document DICTATION DATE: 10/20/181443 NARRATIVE WRITER: ERICA 10/20/18 1444 RPT#: [id number] DC DATE: STATUS: ADM IN [facility] [address] [place] [address] END OF REPORT
--- NOTE | 2018-10-20 14:53 | MORECARE ---
CASE MANAGEMENT DISCHARGE SUMMARY PATIENT: CRISTIAN VENEGAS UNIT: [id number] ADM DATE: 10/19/18 AGE: 73 : [birth year] SEX: M ROOM/BED: D.2237 AUTHOR: ENRRIQUE,DOC PHYSICIAN: REFERRING PHYSICIAN: TAMMY NEIL MD DATE OF SERVICE: 10/20/18 Discharge Plan Patient Name: CRISTIAN VENEGAS Facility: [facility]:[place] : 1945 Planned Disposition: Home with Home Health Anticipated Discharge Date: Discharge Date: Expected LOS: Initial Reviewer: [email or web address] Initial Review Date: 10/21/2018 Generated: 10/20/18 3:52 pm Comments DCP- Discharge Planning Updated by [id number]: Lore Hernandez on 10/20/18 1:[address] Patient Name: CRISTIAN VENEGAS Admission Status: Elective Accout number: [id number] Admission Date: 10-19-2018 : 1945 Admission Diagnosis: Attending: TAMMY NEIL Current LOS: 1 Anticipated DC Date: Planned Disposition: Home with Home Health Primary Insurance: [facility] MEDICARE SOLUTIONS Discharge Planning Comments: CM met with patient to discuss discharge planning/needs, his 2 daughters and son in law are in the room and verbal permission received to discuss discharge planning with his family present. He lives at [address] [place] [address] in [place]. He has a cane, walker, and electric scooter that he states he does not use. He has a glucometer and checks his blood sugar 4 times a day. He lives alone and has been independent with all ADL's and AIDL's. He states that his family would like him to have home health. His daughter (Shavonne) states that he needs med box management and disease education. She states she doesn't feel like he eats "the right foods". [facility] for [facility] signed and clinical faxed. [facility] does not take his insurance, referral to [facility]. CM will continue to follow and assist with discharge planning/needs. Magnetic Tape Typewriter Operator: Lore Hernandez DCPIA - Discharge Planning Initial Assessment Updated by [email or web address]: Lore Hernandez on 10/20/18 2:32 pm * Is the patient Alert and Oriented? Yes * How many steps to enter\\exit or inside your home? 5/0 * PCP Dr. Sesay * Pharmacy [facility] on [address] * Preadmission Environment Home Alone * ADLs Independent * Equipment Cane Glucometer Power Chair or Electric Scooter Wheelchair * List name and contact numbers for known caregivers / representatives who currently or will assist patient after discharge: Shavonne Wagner [facility] - [phone] Miranda Wagner [facility] - [phone] * Verbal permission to speak to the caregivers and representatives has been obtained from the patient. Yes * Community resources currently utilized None * Additional services required to return to the preadmission environment? No * Can the patient safely return to the preadmission environment? Yes * Has this patient been hospitalized within the prior 30 days at any hospital? No External Providers External Provider: [employer] Next Contact Date: Service Request Date: Service Type: Resolution: Reviewer: Comments: Coverage Notice Reviewer: [id number] Marly Hernandez Notice Issued Date-Time: 10/20/2018 14:42 Notice Type: Patient Choice Letter Notice Delivered To: Patient Relationship to Patient: Self Dimpling Machine Operator Name: Delivery Method: HAND - Hand Delivered Omayra Days: Prior Verbal Notification: Recipient Understood Notice: Yes Recipient Signature: Yes Med Rec Note Co-signed by Attending: Coverage Notice Comment: [facility] Last DP export: 10/20/18 1:44 p Patient Name: CRISTIAN VENEGAS Page [id number] at 1453 All edits/amendments must be made on the electronic document DICTATION DATE: 10/20/181451 LIGHTING EQUIPMENT OPERATOR: ERICA 10/20/181451 RPT#: [id number] DC DATE: STATUS: ADM IN [facility] [address] [place] [address] END OF REPORT
[2018-10-20 16:36] VITALS: BP 108/55
--- NOTE | 2018-10-20 20:00 | NUR ---
ALERT RESTING IN BED, DENIES PAIN, SEE SHIFT ASSESSMENT, CALL LIGHT IN REACH
[2018-10-20 22:12] VITALS: BP 90/51
[2018-10-21 01:00] VITALS: BP 108/57
[2018-10-21 06:29] LABS: BASOPHILS 0.4 % (0-2); EOSINOPHILS 2.9 % (0-7); HEMATOCRIT 35.9 % (42.0-54.0); HEMOGLOBIN 12.3 g/dL (13.5-17.5); IMMATURE GRANULOCYTES 1.3 % (0-5); LYMPHOCYTES 30.8 % (15-50); MCHC 34.3 g/dL (31.0-37.0); MCV 81.6 fL (80.0-100.0); MEAN PLATELET VOLUME 9.9 fL (7.4-10.4); MONOCYTES 8.8 % (2-11); NEUTROPHILS 55.8 % (40-80); PLATELET COUNT 285 10x3/uL (130-400); RDW 13.2 % (11.5-14.5)
[2018-10-21 06:35] VITALS: BP 125/62
[2018-10-21 07:04] LABS: CALC OSMOLALITY 286 mosm/kg (275-300); CARBON DIOXIDE 23.7 mmol/L (21.0-32.0); CHLORIDE - SERUM 109 mmol/L (98-107); CREATININE - SERUM 0.9 mg/dL (0.6-1.3); GLUCOSE 172 mg/dL (74-106); POTASSIUM - SERUM 3.9 mmol/L (3.5-5.1); SODIUM 141 mmol/L (136-145); UREA NITROGEN 18 mg/dL (7-18); eGFR NON AFRICAN AMERICAN 88 mL/min (90-120)
[2018-10-21 09:11] VITALS: BP 132/70
[2018-10-21 12:25] VITALS: BP 119/74
[2018-10-21] MEDS ORDERED: BACTRIM 400-801 TAB PO (13:41)
--- NOTE | 2018-10-21 15:46 | NUR ---
DC HOME AT THIS TIME VOICE UNDERSTANDING OF DC ORDERS. IV DC. TRANSPORTED DOWN BY WC IN STABLE CONDITION.
--- NOTE | 2018-10-21 16:23 | MORECARE ---
CASE MANAGEMENT DISCHARGE SUMMARY PATIENT: CRISTIAN VENEGAS UNIT: [id number] ADM DATE: 10/19/18 AGE: 73 : 46 SEX: M ROOM/BED: D.2237 AUTHOR: KIMI OSUNA PHYSICIAN: REFERRING PHYSICIAN: TAMMY NEIL MD DATE OF SERVICE: 10/21/18 Discharge Plan Patient Name: CRISTIAN VENEGAS Facility: [facility]:[place] : 1945 Planned Disposition: Home with Home Health Anticipated Discharge Date: Discharge Date: 10/21/2018 Expected LOS: Initial Reviewer: [email or web address] Initial Review Date: 10/21/2018 Generated: 10/21/18 5:23 pm Comments DCP- Discharge Planning Updated by [email or web address]: Lore Hernandez on 10/21/18 3:[address] Patient Name: CRISTIAN VENEGAS Encounter No: [id number] : 1945 Primary Insurance: [facility] MEDICARE SOLUTIONS Anticipated DC Date: Planned Disposition: Home with Home Health External Planned Provider: : DCP follow-up note: Patient and family in agreement with discharge plan. No changes to plan. DC clinical faxed to [facility]. Case management will follow and assist as needed. Lore Hernandez DCP- Discharge Planning Updated by [email or web address]: Lore Hernandez on 10/20/18 1:[address] Patient Name: CRISTIAN VENEGAS Admission Status: Elective Accout number: [id number] Admission Date: 10-19-2018 : 1945 Admission Diagnosis: Attending: TAMMY NEIL Current LOS: 1 Anticipated DC Date: Planned Disposition: Home with Home Health Primary Insurance: [facility] MEDICARE SOLUTIONS Discharge Planning Comments: CM met with patient to discuss discharge planning/needs, his 2 daughters and son in law are in the room and verbal permission received to discuss discharge planning with his family present. He lives at [address] [place] [address] in [place]. He has a cane, walker, and electric scooter that he states he does not use. He has a glucometer and checks his blood sugar 4 times a day. He lives alone and has been independent with all ADL's and AIDL's. He states that his family would like him to have home health. His daughter (Shavonne) states that he needs med box management and disease education. She states she doesn't feel like he eats "the right foods". [facility] for [facility] signed and clinical faxed. [facility] does not take his insurance, referral to [facility]. CM will continue to follow and assist with discharge planning/needs. Desk Assistant: Lore Hernandez DCPIA - Discharge Planning Initial Assessment Updated by [id number]: Lore Hernandez on 10/20/18 2:32 pm * Is the patient Alert and Oriented? Yes * How many steps to enter\\exit or inside your home? 5/0 * PCP Dr. Sesay * Pharmacy [facility] [address] * Preadmission Environment Home Alone * ADLs Independent * Equipment Cane Glucometer Power Chair or Electric Scooter Wheelchair * List name and contact numbers for known caregivers / representatives who currently or will assist patient after discharge: Shavonne Wagner [facility] - [phone] Miranda Wagner [facility] - [phone] * Verbal permission to speak to the caregivers and representatives has been obtained from the patient. Yes * Community resources currently utilized None * Additional services required to return to the preadmission environment? No * Can the patient safely return to the preadmission environment? Yes * Has this patient been hospitalized within the prior 30 days at any hospital? No Coverage Notice Reviewer: [id number] - Lore Hernandez Notice Issued Date-Time: 10/20/2018 14:42 Notice Type: Patient Choice Letter Notice Delivered To: Patient Relationship to Patient: Self Venue Coordinator Name: Delivery Method: HAND - Hand Delivered Omayra Days: Prior Verbal Notification: Recipient Understood Notice: Yes Recipient Signature: Yes Med Rec Note Co-signed by Attending: Coverage Notice Comment: [facility] for [facility] or [facility] Last DP export: 10/20/18 1:53 p Patient Name: CRISTIAN VENEGAS Page [id number] at 1623 All edits/amendments must be made on the electronic document DICTATION DATE: 10/21/181621 INTERIOR DESIGN COORDINATOR: ERICA 10/21/18 162 RPT#: [id number] MD DATE:10/21/18 STATUS: DIS IN [facility] [address] [facility] [place] [address] END OF REPORT
== END 2018-10-21 15:48 | disposition home health service (06) | DRG 603 ==
LOC: D.MS 14:09
PROVIDERS: Family Medicine; ADMIT Internal Medicine Nephrology; ATTEND Internal Medicine Nephrology
DX: L03.116 Cellulitis of left lower limb (principal); D50.9 Iron deficiency anemia, unspecified; E11.40 Type 2 diabetes mellitus with diabetic neuropathy, unspecified; I25.10 Atherosclerotic heart disease of native coronary artery without angina pectoris; I10 Essential (primary) hypertension

== ENCOUNTER 2018-11-13 09:50 | Day surgery (SDC) | payer MEDICARE, MEDICAID ==
[2018-11-12 12:04] LABS: HEMATOCRIT 38.9 % (42.0-54.0); HEMOGLOBIN 13.5 g/dL (13.5-17.5); MCH 28.5 pg (26.0-34.0); MCHC 34.7 g/dL (31.0-37.0); MCV 82.2 fL (80.0-100.0); MEAN PLATELET VOLUME 10.2 fL (7.4-10.4); RBC 4.73 10x6/uL (4.20-6.10); WBC 8.3 10x3/uL (4.8-10.8)
[2018-11-12 12:05] LABS: ANION GAP 12.7 mmol/L (8-16); CALCIUM 8.7 mg/dL (8.5-10.1); CARBON DIOXIDE 26.7 mmol/L (21.0-32.0); CREATININE - SERUM 1.2 mg/dL (0.6-1.3); POTASSIUM - SERUM 4.4 mmol/L (3.5-5.1)
[2018-11-12 12:21] LABS: APTT 26.7 SECONDS (22.8-39.4); INR 0.96 (0.85-1.17); PROTIME 12.3 SECONDS (11.6-15.0)
[~2018-11-13] VITALS: Ht 172.7 cm; Wt 91.6 kg
[~2018-11-13 09:50] MED LIST changes: +BACTRIM 400-801 TAB PO; +CELEBREX 100 M100 MG PO; +DOXYCYCLINE HY100 M2; +GABAPENTIN100 MG PO; +PEPCID40 MG PO; +VOLTAREN75 MG PO
[2018-11-13 11:28] VITALS: BP 145/78; Ht 172.7 cm; Wt 91.6 kg
--- NOTE | 2018-11-13 14:56 | NUR ---
1418-REC'D FROM RR. ALERT AND AWAKE, DENIES PRESENT PAIN.ABLE TO WIGGLE LEFT FOOT METATARSALS. CAP REFILL WNL. DRESSING CDI. VSS. FAMILY AT BEDSIDE, CL IN EASY REACH.
--- NOTE | 2018-11-13 14:57 | NUR ---
5801-FULL LIQUID TRAY TO ROOM.
--- NOTE | 2018-11-20 12:37 | OP ---
PATIENT NAME: CRISTIAN VENEGAS MEDICAL RECORD: [id number] :[birth year] LOCATION:[facility] ADMISSION DATE: SURGEON: NEWTON YE DATE OF OPERATION: 11/13/2018 SURGEON: Newton Ye DPM PREOPERATIVE DIAGNOSIS: Metatarsal deformity, fifth metatarsal, left foot. POSTOPERATIVE DIAGNOSIS: Metatarsal deformity, fifth metatarsal, left foot. PROCEDURE: Excision of fifth metatarsal head, left foot. ANESTHESIA: Local with monitored anesthesia care. HEMOSTASIS: Pneumatic ankle tourniquet inflated to 250 mmHg. ESTIMATED BLOOD LOSS: Minimal. MATERIALS: 3-0 Vicryl and 4-0 Prolene. INJECTABLES: 10 cc of 0.5% bupivacaine plain. INDICATIONS: The patient has longstanding history of chronic pain associated with the area of sub-fifth metatarsal head. He is actually ulcerated in this area due to the chronic pressure from the region. We have discussed removal of the fifth metatarsal head as he has not done well offloading with proper shoes and padding. We have discussed with him the proposed procedure, risks and benefits were discussed. Complications were reviewed. All questions were answered. He was appropriately consented for the above-mentioned procedure. DESCRIPTION OF PROCEDURE: The patient was brought in the operating room and placed on the operating table in the supine position. A timeout was called with Dr. Ye, who identified the patient, the surgical site, and the surgery to be performed. Once appropriate anesthesia was obtained, the foot was prepped and draped in the usual aseptic manner. The pneumatic ankle tourniquet was inflated to 250 mmHg on a well-padded left ankle. Attention was directed to the lateral aspect of the left foot where a 5-cm linear incision was made directly over the fifth metatarsal head and shaft. This incision was carried deep to soft tissue with care being taken to retract all vital neurovascular structures. All bleeders were cauterized along the way. The periosteum was then reflected from the head and distal third of the fifth metatarsal. The surgical site was inspected for any purulent material, any infection or purulent material and none was noted. The head of the fifth metatarsal that was noted to be firm and intact. Utilizing a sagittal saw, the distal third of the fifth metatarsal was resected. The surgical site was then reinvestigated for any potential pathological tissue and none was noted. The surgical site was then irrigated with copious amounts of normal sterile saline via bulb syringe. The deep and subQ structures were reapproximated and coapted using 3-0 Vicryl. The subQ was reapproximated and coapted with 3-0 Vicryl. The skin was OPERATIVE REPORT [id number] RUBICRISTIAN DERECK reapproximated and coapted with 4-0 nylon. A dressing consisting of Xeroform, 4 x 4's, Kerlix, and Trevor bandage was applied to the left foot. The pneumatic ankle tourniquet was deflated and cap refill time is immediate to all digits of the left foot. The patient was discharged home with instructions to ice and elevate the left foot. He has a postop shoe to help further offload the foot. He was provided with my cell phone number for any after hour difficulties. He was provided through with prescriptions for [place] 5/325 and doxycycline 100 mg. There were no complications with this procedure. We will follow up with this gentleman in 1 week. TRANSINT:[id number] Voice Confirmation ID: [id number] DOCUMENT ID: [id number] NEWTON YE at 1237 CC: [id number] DICTATION DATE: 11/13/18 1617 PRODUCT REPRESENTATIVE: 11/13/18 1645 [facility] 11/13/[address] [address]
== END 2018-11-13 15:15 | disposition home or self-care (01) ==
LOC: D.OPS 09:50 → D.PAN 12:00 → D.OPS 15:15
PROVIDERS: Anesthesiology; ATTEND Podiatrist
DX: M77.52 Other enthesopathy of left foot and ankle (principal); G89.29 Other chronic pain; Z01.812 Encounter for preprocedural laboratory examination

== ENCOUNTER 2018-11-17 15:42 | Inpatient (IN) | payer MEDICARE, MEDICAID ==
[~2018-11-17] VITALS: Ht 172.7 cm; Wt 93.0 kg
--- NOTE | 2018-11-17 16:18 | NUR ---
pt recieved via admission staff. Iv sited to left forearm. c/o pain, will address with Dr. Maloney. vss at this time. daughter at bedside. rr even and unlabored. left foot red and swollen and hot. will continue to monitor.
[2018-11-17] MEDS ORDERED: REQUIP0.25 MG PO (16:28)
[2018-11-17] MEDS ORDERED: TESSALON PERLE100 MG PO (16:29)
[2018-11-17 17:41] LABS: BASOPHILS 0.5 % (0-2); EOSINOPHILS 4.8 % (0-7); HEMATOCRIT 36.1 % (42.0-54.0); HEMOGLOBIN 12.6 g/dL (13.5-17.5); IMMATURE GRANULOCYTES 0.6 % (0-5); LYMPHOCYTES 32.6 % (15-50); MCH 28.3 pg (26.0-34.0); MCHC 34.9 g/dL (31.0-37.0); MCV 81.1 fL (80.0-100.0); MEAN PLATELET VOLUME 10.4 fL (7.4-10.4); MONOCYTES 8.6 % (2-11); NEUTROPHILS 52.9 % (40-80); PLATELET COUNT 217 10x3/uL (130-400); RBC 4.45 10x6/uL (4.20-6.10); RDW 13.7 % (11.5-14.5); WBC 6.5 10x3/uL (4.8-10.8)
[2018-11-17 17:58] VITALS: BP 151/78; BMI 31.2
[2018-11-17 18:05] LABS: ALBUMIN 3.2 g/dL (3.4-5.0); ANION GAP 13.8 mmol/L (8-16); BILIRUBIN - TOTAL 0.74 mg/dL (0.2-1.3); CALCIUM 8.8 mg/dL (8.5-10.1); CARBON DIOXIDE 25.1 mmol/L (21.0-32.0); CREATININE - SERUM 1.2 mg/dL (0.6-1.3); POTASSIUM - SERUM 3.9 mmol/L (3.5-5.1); PROTEIN - SERUM 7.5 g/dL (6.4-8.2)
--- NOTE | 2018-11-17 18:59 | NUR ---
PT IN BED DAUGHTER AT BEDSIDE. PT DENIES NEEDS AT THIS TIME.
[2018-11-17 19:00] VITALS: BP 134/70
[2018-11-17 23:00] VITALS: BP 128/72
[2018-11-18 03:00] VITALS: BP 136/68
[2018-11-18 05:58] LABS: BASOPHILS 0.5 % (0-2); EOSINOPHILS 4.2 % (0-7); HEMATOCRIT 35.3 % (42.0-54.0); HEMOGLOBIN 12.2 g/dL (13.5-17.5); IMMATURE GRANULOCYTES 0.8 % (0-5); LYMPHOCYTES 38.8 % (15-50); MCH 28.2 pg (26.0-34.0); MCHC 34.6 g/dL (31.0-37.0); MCV 81.7 fL (80.0-100.0); MEAN PLATELET VOLUME 10.4 fL (7.4-10.4); NEUTROPHILS 46.7 % (40-80); PLATELET COUNT 230 10x3/uL (130-400); RBC 4.32 10x6/uL (4.20-6.10); RDW 13.6 % (11.5-14.5); WBC 5.9 10x3/uL (4.8-10.8)
[2018-11-18 06:25] LABS: ALBUMIN 2.7 g/dL (3.4-5.0); ANION GAP 11.9 mmol/L (8-16); BILIRUBIN - TOTAL 0.57 mg/dL (0.2-1.3); CALCIUM 8.4 mg/dL (8.5-10.1); CARBON DIOXIDE 27.1 mmol/L (21.0-32.0); CREATININE - SERUM 1.1 mg/dL (0.6-1.3); MAGNESIUM - SERUM 1.5 mg/dL (1.8-2.4); PHOSPHOROUS 3.3 mg/dL (2.5-4.9); PROTEIN - SERUM 6.6 g/dL (6.4-8.2)
[2018-11-18 06:29] LABS: APTT 27.8 SECONDS (22.8-39.4); INR 0.99 (0.85-1.17); PROTIME 12.6 SECONDS (11.6-15.0)
--- NOTE | 2018-11-18 07:34 | NUR ---
PT SITTING UP. ALERT AND ORIENTED. RR EVEN AND UNLABORED. DENIES NEEDS AT THIS TIME. WILL CONTINUE TO MONITOR.
[2018-11-18 07:42] VITALS: BP 144/77
[2018-11-18 10:11] VITALS: Ht 172.7 cm; Wt 93.0 kg
--- NOTE | 2018-11-18 12:06 | MORECARE ---
CASE MANAGEMENT DISCHARGE SUMMARY PATIENT: CRISTIAN VENEGAS DON UNIT: [id number] ADM DATE: 11/17/18 AGE: 73 : [birth year] SEX: M ROOM/BED: D.1202 AUTHOR: KIMI OSUNA PHYSICIAN: REFERRING PHYSICIAN: RODRIGO KELLY DO DATE OF SERVICE: 11/18/18 Discharge Plan Patient Name: CRISTIAN VENEGAS Facility: [facility]:[place] : 1945 Planned Disposition: Home Anticipated Discharge Date: 11/20/18 Discharge Date: Expected LOS: 3 Initial Reviewer: [email or web address] Initial Review Date: 11/17/2018 Generated: 11/18/18 1:06 pm DCPIA - Discharge Planning Initial Assessment Updated by [id number]: Sola Edmondson on 11/18/18 12:01 pm * Is the patient Alert and Oriented? Yes * How many steps to enter\exit or inside your home? Three * PCP Dr. Kelly * Pharmacy [facility] - [place] * Preadmission Environment Home Alone * ADLs Independent * Equipment Cane Glucometer Power Chair or Electric Scooter Rolling Walker * List name and contact numbers for known caregivers / representatives who currently or will assist patient after discharge: Shavonne Wagner - daughter - [phone] Neetu Wagner - daughter - [phone] * Verbal permission to speak to the caregivers and representatives has been obtained from the patient. Yes * Community resources currently utilized Home Health * Please name any agencies selected above. [facility] signed for resumption. * Additional services required to return to the preadmission environment? No * Can the patient safely return to the preadmission environment? Yes * Has this patient been hospitalized within the prior 30 days at any hospital? Yes Patient Name: CRISTIAN VENEGAS Page [phone] at 1206 All edits/amendments must be made on the electronic document DICTATION DATE: 11/18/18 1206 DINING ROOM HOSTESS: ERICA 11/18/18 1206 RPT#: [id number] DC DATE: STATUS: ADM IN [facility] [address] [place] [address] END OF REPORT
--- NOTE | 2018-11-18 12:14 | MORECARE ---
CASE MANAGEMENT DISCHARGE SUMMARY PATIENT: CRISTIAN VENEGAS UNIT: [id number] ADM DATE: 11/17/18 AGE: 73 : [birth year] SEX: M ROOM/BED: D.1202 AUTHOR: KIMI OSUNA PHYSICIAN: REFERRING PHYSICIAN: RODRIGO KELLY DO DATE OF SERVICE: 11/18/18 Discharge Plan Patient Name: CRISTIAN VENEGAS Facility: [facility]:[place] : 1945 Planned Disposition: Home Anticipated Discharge Date: 11/20/18 Discharge Date: Expected LOS: 3 Initial Reviewer: [email or web address] Initial Review Date: 11/17/2018 Generated: 11/18/18 1:14 pm Comments DCP- Discharge Planning Updated by [email or web address]: Sola Edmondson on 11/18/18 11:[address] Patient Name: CRISTIAN VENEGAS Admission Status: Urgent Accout number: [id number] Admission Date: 11-17-2018 : 1945 Admission Diagnosis: Attending: RODRIGO KELLY Current LOS: 1 Anticipated DC Date: 11-20-2018 Planned Disposition: Home Primary Insurance: [facility] MEDICARE SOLUTIONS Discharge Planning Comments: DC PLAN: Return home alone with resumption of [facility]. ANTICIPATED DC NEEDS: Resumption of [facility]. CM met with patient to complete initial dc planning assessment. CM educated patient on the CM role and verbal consent given by patient to complete assessment. CM verified patient's address, phone number, and emergency contact phone numbers. Patient lives at home alone and reports he is independent with his ADL's. Patient currently has [facility] and wishes to resume at discharge. PAUL form signed by patient for resumption of [facility]. Signed form placed in chart and signed form given to patient. At discharge patient plans to return home alone and feels this is a safe discharge. Patient denied further known discharge needs at this time. . Patient reports one of his daughters will transport him home at time of discharge.CM will continue to follow and will assist as needed with dc plans/needs. Cm contacted [facility] to notify of admission. Spoke to [place] and reported the patient had been admitted. Teresa reported the End of episode on this patient is December 19. HH will not need a new hh order at time of dc. Home Health will need dc notification and dc orders/instructions faxed at time of discharge. Log Roller: Sola Edmondson DCPIA - Discharge Planning Initial Assessment Updated by [email or web address]: Sola Edmondson on 11/18/18 12:01 pm * Is the patient Alert and Oriented? Yes * How many steps to enter\exit or inside your home? Three * PCP Dr. Kelly * Pharmacy [facility] - [place] * Preadmission Environment Home Alone * ADLs Independent * Equipment Cane Glucometer Power Chair or Electric Scooter Rolling Walker * List name and contact numbers for known caregivers / representatives who currently or will assist patient after discharge: Shavonne Wagner - daughter - [phone] Neetu cespedes - [phone] * Verbal permission to speak to the caregivers and representatives has been obtained from the patient. Yes * Community resources currently utilized Home Health * Please name any agencies selected above. [facility] - [facility] signed for resumption. * Additional services required to return to the preadmission environment? No * Can the patient safely return to the preadmission environment? Yes * Has this patient been hospitalized within the prior 30 days at any hospital? Yes Last DP export: 11/18/18 11:06 a Patient Name: CRISTIAN VENEGAS Page 95089 at 1214 All edits/amendments must be made on the electronic document DICTATION DATE: 11/18/18 1214 DIRECTOR OF EXHIBIT DEVELOPMENT: ERICA 11/18/18 1214 RPT#: [id number] DC DATE: STATUS: ADM IN [facility] [address] [place] [address] END OF REPORT
[2018-11-18 14:47] VITALS: BP 98/54
[2018-11-18 19:00] VITALS: BP 125/72
--- NOTE | 2018-11-18 19:42 | NUR ---
PT IN BED. DENIES NEEDS AT THIS TIME.
[2018-11-18 23:00] VITALS: BP 130/78
[2018-11-19 03:00] VITALS: BP 120/68
[2018-11-19 06:19] LABS: ALBUMIN 2.8 g/dL (3.4-5.0); BILIRUBIN - TOTAL 0.82 mg/dL (0.2-1.3); CALCIUM 8.2 mg/dL (8.5-10.1); CARBON DIOXIDE 22.2 mmol/L (21.0-32.0); CREATININE - SERUM 1.1 mg/dL (0.6-1.3); PHOSPHOROUS 3.2 mg/dL (2.5-4.9); PROTEIN - SERUM 6.7 g/dL (6.4-8.2)
[2018-11-19 06:20] LABS: MAGNESIUM - SERUM 1.9 mg/dL (1.8-2.4)
[2018-11-19 06:22] LABS: ANION GAP 14.6 mmol/L (8-16); POTASSIUM - SERUM 4.8 mmol/L (3.5-5.1)
--- NOTE | 2018-11-19 07:14 | NUR ---
PT LAYING IN BED. RR EVEN AND UNLABORED. ALERT AND ORIENTED. DENIES NEEDS AT THIS TIME. WILL CONTINUE TO MONITOR.
[2018-11-19 07:20] VITALS: BP 107/57
[2018-11-19 07:52] LABS: BASOPHILS 0.4 % (0-2); EOSINOPHILS 3.5 % (0-7); HEMATOCRIT 37.3 % (42.0-54.0); HEMOGLOBIN 12.5 g/dL (13.5-17.5); IMMATURE GRANULOCYTES 1.1 % (0-5); LYMPHOCYTES 34.8 % (15-50); MCH 27.8 pg (26.0-34.0); MCHC 33.5 g/dL (31.0-37.0); MCV 83.1 fL (80.0-100.0); MEAN PLATELET VOLUME 10.3 fL (7.4-10.4); MONOCYTES 6.9 % (2-11); NEUTROPHILS 53.3 % (40-80); PLATELET COUNT 230 10x3/uL (130-400); RBC 4.49 10x6/uL (4.20-6.10); RDW 13.9 % (11.5-14.5); WBC 7.2 10x3/uL (4.8-10.8)
[2018-11-19 09:20] LABS: % SATURATION 23 % (15-55); IRON 60 ug/dl (35-150); TOTAL IRON BIND CAPACITY 257 ug/dl (260-445); UNSAT IRON BIND CAPACITY 197 ug/dl (150-375)
[2018-11-19 10:15] LABS: APPEARANCE CLEAR (CLEAR); BILIRUBIN NEGATIVE (NEGATIVE); COLOR STRAW (YELLOW); GLUCOSE 100 mg/dL (NEGATIVE); KETONE NEGATIVE (NEGATIVE); NITRITE NEGATIVE (NEGATIVE); PROTEIN NEGATIVE (NEGATIVE); UROBILINOGEN NORMAL (NORMAL)
--- NOTE | 2018-11-19 14:00 | NUR ---
PT IN SHOWER. LINENS CHANGED. DRESSING COVERED WHILE IN SHOWER.
[2018-11-19 18:21] VITALS: BP 133/66
[2018-11-19 19:25] VITALS: BP 111/47
--- NOTE | 2018-11-19 19:51 | NUR ---
PT LYING IN BED WATCHING TV. CL IN REACH. DENIES NEEDS OR PAIN AT THIS TIME.BED IN LOW. SIDE RAILS X2. A/O X4. RESP EVEN AND UNLABORED. LUNGS CLEAR. BOWEL ACTIVE X4. DRESSING TO LEFT FOOT INTACT. WILL CONTINUE TO MONITOR.
[2018-11-20 00:13] VITALS: BP 101/44
[2018-11-20 04:13] VITALS: BP 117/47
--- NOTE | 2018-11-20 05:58 | NUR ---
I have reviewed this patient and I concur with the Shift Assessment completed by the Licensed Practical Nurse today this shift.
[2018-11-20 07:57] LABS: BASOPHILS 0.3 % (0-2); EOSINOPHILS 3.2 % (0-7); HEMATOCRIT 36.1 % (42.0-54.0); HEMOGLOBIN 12.2 g/dL (13.5-17.5); LYMPHOCYTES 23.2 % (15-50); MCHC 33.8 g/dL (31.0-37.0); MCV 82.8 fL (80.0-100.0); MEAN PLATELET VOLUME 10.2 fL (7.4-10.4); MONOCYTES 7.3 % (2-11); PLATELET COUNT 218 10x3/uL (130-400); RBC 4.36 10x6/uL (4.20-6.10); RDW 13.8 % (11.5-14.5); WBC 7.8 10x3/uL (4.8-10.8)
[2018-11-20 08:00] VITALS: BP 109/56
[2018-11-20 08:17] LABS: ALBUMIN 2.7 g/dL (3.4-5.0); ANION GAP 12.2 mmol/L (8-16); BILIRUBIN - TOTAL 0.71 mg/dL (0.2-1.3); CALCIUM 8.2 mg/dL (8.5-10.1); CARBON DIOXIDE 24.2 mmol/L (21.0-32.0); CREATININE - SERUM 1.1 mg/dL (0.6-1.3); MAGNESIUM - SERUM 1.6 mg/dL (1.8-2.4); POTASSIUM - SERUM 4.4 mmol/L (3.5-5.1); PROTEIN - SERUM 6.4 g/dL (6.4-8.2)
[2018-11-20 08:22] LABS: PHOSPHOROUS 2.3 mg/dL (2.5-4.9)
--- NOTE | 2018-11-20 09:06 | NUR ---
PATIENT IS ALERT/ORIENT. SITTING UP AT SIDE OF THE BED TO EAT BREAKFAST. CALL LIGHT WITHIN REACH. VOICES NO NEEDS. WILL CONTINUE WITH PLAN OF CARE
--- NOTE | 2018-11-20 09:59 | NUR ---
NUTRTITION FOLLOW UP: Interview: Patient stated his appetite is good. Denied N/V/D/C and denied any new chewing/swallowing issues. Patient states pain in foot, but the pain does not affect appetite. Patient has been tolerating Aleksandar and will continue sending it BID. DIET: Diabetic Diet PO INTAKE: 100% x 1 on 11/20 (stated) WT: 11/18- 205 lbs (no wt change) BM: No BM on EMR since admit MEDS: Dilaudid, [place], Lovenox, protonix, Humulin, Mag Ox LABS: Na- 135(L), BUN- 22(H), Calcium-8.2(L), POC glucose: 214, 192, 219, 182 IVF: NaCl @ 75 ml/hr GOALS: PO intake > 75%, BM q 3 days, stable wt, Blood glucose < 170, tolerate diet and supplement Will continue to monitor closely Clinical Dietitian Following
--- NOTE | 2018-11-20 10:45 | NUR ---
PATIENT GIVEN PRN PAIN MEDICATION PER REQUEST FOR LEFT FOOT PAIN
[2018-11-20] MEDS ORDERED: VIBRAMYCIN 100100 MG PO (11:37)
--- NOTE | 2018-11-20 14:04 | NUR ---
PATIENT LEFT BEFORE DISCHARGE INSTRUCTIONS COULD BE GIVEN TO PATIENT.
--- NOTE | 2018-11-20 14:34 | MORECARE ---
CASE MANAGEMENT DISCHARGE SUMMARY PATIENT: CRISTIAN VENEGAS DON UNIT: [id number] ADM DATE: 11/17/18 AGE: 73 : [birth year] SEX: M ROOM/BED: D.1202 AUTHOR: KIMI OSUNA PHYSICIAN: REFERRING PHYSICIAN: RODRIGO KELLY DO DATE OF SERVICE: 11/20/18 Discharge Plan Patient Name: CRISTIAN VENEGAS Facility: [facility]:[place] : 1945 Planned Disposition: Home Anticipated Discharge Date: 11/20/18 Discharge Date: 11/20/2018 Expected LOS: 3 Initial Reviewer: [email or web address] Initial Review Date: 11/17/2018 Generated: 11/20/18 3:33 pm Comments DCP- Discharge Planning Updated by [id number]: Sola Edmondson on 11/18/18 11:[address] Patient Name: CRISTIAN VENEGAS Admission Status: Urgent Accout number: [id number] Admission Date: 11-17-2018 : 1945 Admission Diagnosis: Attending: RODRIGO KELLY Current LOS: 1 Anticipated DC Date: 11-20-2018 Planned Disposition: Home Primary Insurance: [facility] MEDICARE SOLUTIONS Discharge Planning Comments: DC PLAN: Return home alone with resumption of [facility]. ANTICIPATED DC NEEDS: Resumption of [facility]. CM met with patient to complete initial dc planning assessment. CM educated patient on the CM role and verbal consent given by patient to complete assessment. CM verified patient's address, phone number, and emergency contact phone numbers. Patient lives at home alone and reports he is independent with his ADL's. Patient currently has [facility] and wishes to resume at discharge. PAUL form signed by patient for resumption of [facility]. Signed form placed in chart and signed form given to patient. At discharge patient plans to return home alone and feels this is a safe discharge. Patient denied further known discharge needs at this time. . Patient reports one of his daughters will transport him home at time of discharge.CM will continue to follow and will assist as needed with dc plans/needs. Cm contacted [facility] to notify of admission. Spoke to [place] and reported the patient had been admitted. Teresa reported the End of episode on this patient is December 19. HH will not need a new hh order at time of dc. Home Health will need dc notification and dc orders/instructions faxed at time of discharge. Plc Controls Engineer: Sola Edmondson DCPIA - Discharge Planning Initial Assessment Updated by [email or web address]: Sola Edmondson on 11/18/18 12:01 pm * Is the patient Alert and Oriented? Yes * How many steps to enter\exit or inside your home? Three * PCP Dr. Kelly * Pharmacy [facility] * Preadmission Environment Home Alone * ADLs Independent * Equipment Cane Glucometer Power Chair or Electric Scooter Rolling Walker * List name and contact numbers for known caregivers / representatives who currently or will assist patient after discharge: Shavonne cespedes - [phone] Neetu cespedes - [phone] * Verbal permission to speak to the caregivers and representatives has been obtained from the patient. Yes * Community resources currently utilized Home Health * Please name any agencies selected above. [place] [facility] signed for resumption. * Additional services required to return to the preadmission environment? No * Can the patient safely return to the preadmission environment? Yes * Has this patient been hospitalized within the prior 30 days at any hospital? Yes External Providers External Provider: [employer] Next Contact Date: Service Request Date: Service Type: Resolution: Reviewer: Comments: Last DP export: 11/18/18 11:14 a Patient Name: CRISTIAN VENEGAS Page [phone] at 1434 All edits/amendments must be made on the electronic document DICTATION DATE: 11/20/18 143 MILL HAND PLATE MILL: ERICA 11/20/18 143 RPT#: [id number] DC DATE:11/20/18 STATUS: DIS IN [facility] [address] [place] [address] END OF REPORT
--- NOTE | 2018-11-20 22:05 | MORECARE ---
CASE MANAGEMENT DISCHARGE SUMMARY PATIENT: CRISTIAN VENEGAS DON UNIT: [id number] ADM DATE: 11/17/18 AGE: 73 : 46 SEX: M ROOM/BED: D.1202 AUTHOR: KIMI OSUNA PHYSICIAN: REFERRING PHYSICIAN: RODRIGO KELLY DO DATE OF SERVICE: 11/20/18 Discharge Plan Patient Name: CRISTIAN VENEGAS Facility: [facility]:[place] : 1945 Planned Disposition: Home with Home Health Anticipated Discharge Date: 11/20/18 Discharge Date: 11/20/2018 Expected LOS: 3 Initial Reviewer: [email or web address] Initial Review Date: 11/17/2018 Generated: 11/20/18 11:04 pm Comments DCP- Discharge Planning Updated by [email or web address]: Yanira Berger on 11/20/18 9:[address] Patient Name: CRISTIAN VENEGAS Encounter No: [id number] : 1945 Primary Insurance: [employer] MEDICARE SOLUTIONS Anticipated DC Date: 11-20-2018 Planned Disposition: Home with Home Health External Planned Provider: : [facility] - called and faxed d/c summary to [facility] They will be out to see patient tomorrow. They will also call Dr. Ye for wound care orders. IMM signed DCP follow-up note: Patient and family in agreement with discharge plan. No changes to plan. Case management will follow and assist as needed. Yanira Berger DCP- Discharge Planning Updated by [id number]: Sola Edmondson on 11/18/18 11:[address] Patient Name: CRISTIAN VENEGAS Admission Status: Urgent Accout number: [id number] Admission Date: 11-17-2018 : 1945 Admission Diagnosis: Attending: RODRIGO KELLY Current LOS: 1 Anticipated DC Date: 11-20-2018 Planned Disposition: Home Primary Insurance: [employer] MED[employer]ARE SOLUTIONS Discharge Planning Comments: DC PLAN: Return home alone with resumption of [facility]. ANTICIPATED DC NEEDS: Resumption of [facility]. CM met with patient to complete initial dc planning assessment. CM educated patient on the CM role and verbal consent given by patient to complete assessment. CM verified patient's address, phone number, and emergency contact phone numbers. Patient lives at home alone and reports he is independent with his ADL's. Patient currently has [facility] and wishes to resume at discharge. PAUL form signed by patient for resumption of [facility]. Signed form placed in chart and signed form given to patient. At discharge patient plans to return home alone and feels this is a safe discharge. Patient denied further known discharge needs at this time. . Patient reports one of his daughters will transport him home at time of discharge.CM will continue to follow and will assist as needed with dc plans/needs. Cm contacted [facility] to notify of admission. Spoke to [place] and reported the patient had been admitted. [place] reported the End of episode on this patient is December 19. HH will not need a new hh order at time of dc. Home Health will need dc notification and dc orders/instructions faxed at time of discharge. Truckman: Sola Edmondsno DCPIA - Discharge Planning Initial Assessment Updated by [email or web address]: Sola Edmondson on 11/18/18 12:01 pm * Is the patient Alert and Oriented? Yes * How many steps to enter\exit or inside your home? Three * PCP Dr. Kelly * Pharmacy [facility] [place] * Preadmission Environment Home Alone * ADLs Independent * Equipment Cane Glucometer Power Chair or Electric Scooter Rolling Walker * List name and contact numbers for known caregivers / representatives who currently or will assist patient after discharge: Shavonne cespedes - [phone] Neetu cespedes - [phone] * Verbal permission to speak to the caregivers and representatives has been obtained from the patient. Yes * Community resources currently utilized Home Health * Please name any agencies selected above. [facility] signed for resumption. * Additional services required to return to the preadmission environment? No * Can the patient safely return to the preadmission environment? Yes * Has this patient been hospitalized within the prior 30 days at any hospital? Yes Coverage Notice Reviewer: [email or web address] Marly Berger Notice Issued Date-Time: 11/20/2018 12:58 Notice Type: IM Discharge Notice Notice Delivered To: Patient Relationship to Patient: Self Reservoir Engineering Consultant Name: Delivery Method: HAND - Hand Delivered Omayra Days: Prior Verbal Notification: Recipient Understood Notice: Yes Recipient Signature: Yes Med Rec Note Co-signed by Attending: Coverage Notice Comment: Last DP export: 11/20/18 1:34 p Patient Name: CRISTIAN VENEGAS Page [phone] at 2205 All edits/amendments must be made on the electronic document DICTATION DATE: 11/20/182203 RADIOCHEMICAL TECHNICIAN: ERICA 11/20/182203 RPT#: [id number] DC DATE:11/20/18 STATUS: DIS IN [facility] [address] [place] [address] END OF REPORT
--- NOTE | 2018-11-20 22:12 | MORECARE ---
CASE MANAGEMENT DISCHARGE SUMMARY PATIENT: CRISTIAN VENEGAS DON UNIT: [id number] ADM DATE: 11/17/18 AGE: 73 : [birth year] SEX: M ROOM/BED: D.1202 AUTHOR: KIMI OSUNA PHYSICIAN: REFERRING PHYSICIAN: RODRIGO KELLY DO DATE OF SERVICE: 11/20/18 Discharge Plan Patient Name: CRISTIAN VENEGAS Facility: [facility]:[place] : 1945 Planned Disposition: Home with Home Health Anticipated Discharge Date: 11/20/18 Discharge Date: 11/20/2018 Expected LOS: 3 Initial Reviewer: [email or web address] Initial Review Date: 11/17/2018 Generated: 11/20/18 11:12 pm Comments DCP- Discharge Planning Updated by [email or web address]: Yanira Berger on 11/20/18 9:[address] Patient Name: CRISTIAN VENEGAS Encounter No: [id number] : 1945 Primary Insurance: [employer] MED[employer] SOLUTIONS Anticipated DC Date: 11-20-2018 Planned Disposition: Home with Home Health External Planned Provider: : [facility] - called and faxed d/c summary to [facility] They will be out to see patient tomorrow. They will also call Dr. Ye for wound care orders. IMM signed DCP follow-up note: Patient and family in agreement with discharge plan. No changes to plan. Case management will follow and assist as needed. Yanira Berger DCP- Discharge Planning Updated by [email or web address]: Sola Edmondson on 11/18/18 11:[address] Patient Name: CRISTIAN VENEGAS Admission Status: Urgent Accout number: [id number] Admission Date: 11-17-2018 : 1945 Admission Diagnosis: Attending: RODRIGO KELLY Current LOS: 1 Anticipated DC Date: 11-20-2018 Planned Disposition: Home Primary Insurance: [employer] MED[employer]ARE SOLUTIONS Discharge Planning Comments: DC PLAN: Return home alone with resumption of [facility]. ANTICIPATED DC NEEDS: Resumption of [facility]. CM met with patient to complete initial dc planning assessment. CM educated patient on the CM role and verbal consent given by patient to complete assessment. CM verified patient's address, phone number, and emergency contact phone numbers. Patient lives at home alone and reports he is independent with his ADL's. Patient currently has [facility] and wishes to resume at discharge. PAUL form signed by patient for resumption of [facility]. Signed form placed in chart and signed form given to patient. At discharge patient plans to return home alone and feels this is a safe discharge. Patient denied further known discharge needs at this time. . Patient reports one of his daughters will transport him home at time of discharge.CM will continue to follow and will assist as needed with dc plans/needs. Cm contacted [facility] to notify of admission. Spoke to [place] and reported the patient had been admitted. [place] reported the End of episode on this patient is December 19. HH will not need a new hh order at time of dc. Home Health will need dc notification and dc orders/instructions faxed at time of discharge. Accounting Representative: Sola Edmondson DCPIA - Discharge Planning Initial Assessment Updated by [email or web address]: Sola Edmondson on 11/18/18 12:01 pm * Is the patient Alert and Oriented? Yes * How many steps to enter\exit or inside your home? Three * PCP Dr. Kelly * Pharmacy [facility] [place] * Preadmission Environment Home Alone * ADLs Independent * Equipment Cane Glucometer Power Chair or Electric Scooter Rolling Walker * List name and contact numbers for known caregivers / representatives who currently or will assist patient after discharge: Shavonne cespedes - [phone] Neetu cespedes - [phone] * Verbal permission to speak to the caregivers and representatives has been obtained from the patient. Yes * Community resources currently utilized Home Health * Please name any agencies selected above. [facility] signed for resumption. * Additional services required to return to the preadmission environment? No * Can the patient safely return to the preadmission environment? Yes * Has this patient been hospitalized within the prior 30 days at any hospital? Yes Coverage Notice Reviewer: [email or web address] Marly Berger Notice Issued Date-Time: 11/20/2018 12:58 Notice Type: IM Discharge Notice Notice Delivered To: Patient Relationship to Patient: Self Arrt Technologist Name: Delivery Method: HAND - Hand Delivered Omayra Days: Prior Verbal Notification: Recipient Understood Notice: Yes Recipient Signature: Yes Med Rec Note Co-signed by Attending: Coverage Notice Comment: Last DP export: 11/20/18 9:05 p Patient Name: CRISTIAN VENEGAS Page [id number] at 2212 All edits/amendments must be made on the electronic document DICTATION DATE: 11/20/182210 LOGISTICS LOSS PREVENTION MANAGER: ERICA 11/20/182210 RPT#: [id number] DC DATE:11/20/18 STATUS: DIS IN [facility] [address] [place] [address] END OF REPORT
== END 2018-11-20 14:06 | disposition home health service (06) | DRG 863 ==
LOC: D.M3 15:42
PROVIDERS: Internal Medicine Nephrology; ADMIT Family Medicine; ATTEND Family Medicine
DX: T81.41XA Infection following a procedure, superficial incisional surgical site, initial encounter (principal); L03.116 Cellulitis of left lower limb; N17.9 Acute kidney failure, unspecified; E87.1 Hypo-osmolality and hyponatremia; E11.628 Type 2 diabetes mellitus with other skin complications; D64.9 Anemia, unspecified; I25.10 Atherosclerotic heart disease of native coronary artery without angina pectoris; I11.0 Hypertensive heart disease with heart failure; I50.9 Heart failure, unspecified; Y83.9 Surgical procedure, unspecified as the cause of abnormal reaction of the patient, or of later complication, without mention of misadventure at the time of the procedure; K21.9 Gastro-esophageal reflux disease without esophagitis

== ENCOUNTER 2019-01-28 10:00 | Day surgery (SDC) | payer MEDICARE ==
[2019-01-26 11:52] LABS: ANION GAP 17.3 mmol/L (8-16); CALCIUM 9.4 mg/dL (8.5-10.1); CARBON DIOXIDE 22.6 mmol/L (21.0-32.0); CREATININE - SERUM 1.1 mg/dL (0.6-1.3); POTASSIUM - SERUM 4.9 mmol/L (3.5-5.1)
[2019-01-26 13:48] LABS: HEMATOCRIT 44.5 % (42.0-54.0); HEMOGLOBIN 14.9 g/dL (13.5-17.5); MCH 28.4 pg (26.0-34.0); MCHC 33.5 g/dL (31.0-37.0); MCV 84.9 fL (80.0-100.0); MEAN PLATELET VOLUME 11.6 fL (7.4-10.4); PLATELET COUNT 241 10x3/uL (130-400); RBC 5.24 10x6/uL (4.20-6.10); RDW 13.6 % (11.5-14.5); WBC 7.2 10x3/uL (4.8-10.8)
[2019-01-26 13:53] LABS: BASOPHILS 0.6 % (0-2); EOSINOPHILS 2.4 % (0-7); IMMATURE GRANULOCYTES 0.6 % (0-5); LYMPHOCYTES 36.6 % (15-50); MONOCYTES 7.7 % (2-11); NEUTROPHILS 52.1 % (40-80)
[~2019-01-28] VITALS: Ht 172.7 cm; Wt 88.5 kg
[~2019-01-28 10:00] MED LIST changes: +REQUIP0.25 MG PO; +VIBRAMYCIN 100100 MG PO
[2019-01-28 11:01] VITALS: BP 103/55; Ht 172.7 cm; Wt 88.5 kg
--- NOTE | 2019-01-28 11:56 | NUR ---
1145 PT BS IS 299. PT STATES HE KEEPS A HIGH BS. NOTIFIED YOLI WALLER OF BS RESULTS. ORDERS TO GIVE A 300CC NS FLUID BOLUS AND RECHECK BS.
--- NOTE | 2019-01-28 15:22 | NUR ---
ICE APPLIED TO R.FOOT ORDERED AND FOOT ELEVATED. PT RESTING QUIETLY. VSS. WILL CTM.
--- NOTE | 2019-02-16 09:04 | OP ---
PATIENT NAME: CRISTIAN VENEGAS MEDICAL RECORD: [id number] :[birth year] LOCATION:[facility] ADMISSION DATE: SURGEON: NEWTON YE DATE OF OPERATION: 01/28/2019 SURGEON: Newton Ye DPM PREOPERATIVE DIAGNOSIS: Osteomyelitis, fifth metatarsal of the right foot. POSTOPERATIVE DIAGNOSIS: Osteomyelitis, fifth metatarsal of the right foot. PROCEDURE: Excision of fifth metatarsal head, right foot. ANESTHESIA: Local with monitored anesthesia care. HEMOSTASIS: Pneumatic ankle tourniquet inflated to 250 mmHg. ESTIMATED BLOOD LOSS: Minimal. MATERIALS: 3-0 Vicryl, 4-0 nylon. INJECTABLES: 10 cc of 0.5% bupivacaine plain. The patient has a longstanding history of associated pain and ulceration associated with the plantar right foot. He is here today for removal of the fifth metatarsal head. We have discussed the proposed procedure, risks and benefits were discussed. Complications were reviewed. He was appropriately consented for the above-mentioned procedure. Of note, he underwent the same procedure on the left foot in October and did very well. DESCRIPTION OF PROCEDURE: The patient was brought in the operating room and placed on the operating table in supine position. A timeout was called with Dr. Ye, identified the patient, surgical site, and the surgery to be performed. Once appropriate anesthesia was obtained, the foot was prepped and draped in usual aseptic manner. The pneumatic ankle tourniquet was inflated to 250 mmHg on the well-padded right ankle. Attention was directed to the lateral aspect of the right foot where a 5-cm linear incision was made. This incision was carried deep to soft tissue with care being taken to retract all vital neurovascular structures. All bleeders were cauterized along the way. The periosteum was then reflected from the distal aspect of the fifth metatarsal. Next, utilizing a sagittal saw, a through and through bone cut was made on the fifth metatarsal midshaft area. All soft tissue attachments were freed from the distal half of the metatarsal and the metatarsal was removed from the foot passed from the field. The surgical site was then investigated for any remaining nonviable tissue and none was noted. The surgical site was then irrigated with copious amounts of normal sterile saline via bulb syringe. The deep structures were then reapproximated and coapted using 3-0 Vicryl. The subq was then reapproximated and coapted using 4-0 Vicryl. The skin was reapproximated and coapted using 4-0 nylon. A dressing consisting of Xeroform, 4 x 4's, Kerlix, and Trevor bandage was applied to the right foot. The pneumatic ankle tourniquet was deflated and cap refill time was immediate to all digits of the right foot. OPERATIVE REPORT [id number] CRISTIAN VENEGAS The patient tolerated the procedure and anesthesia well. He left the operating room with vital signs stable and capillary refill time intact. The patient will be discharged home with instructions to ice and elevate the right foot. He has a postop shoe to further help offload the foot. He has my cell phone number for any after hour difficulties and there were no complications with this procedure. TRANSINT:[id number] Voice Confirmation ID: [id number] DOCUMENT ID: [id number] NEWTON YE at 0904 CC: [id number] DICTATION DATE: 02/10/19 1045 SHUTTLE DRIVER: 02/10/19 1058 [facility] 01/28/19 [address] [place] [address]
== END 2019-01-28 16:55 | disposition home or self-care (01) ==
LOC: D.PAN 10:00 → D.OPS 12:45 → D.PAN 12:45
PROVIDERS: Anesthesiology; ATTEND Podiatrist
DX: M86.8X7 Other osteomyelitis, ankle and foot (principal)

== ENCOUNTER → 2019-04-07 08:52 | Outpatient (CLI) | payer MEDICARE ==
[2019-01-28 11:01] VITALS: BMI 29.7
--- NOTE | 2019-04-09 14:40 | EC ---
PATIENT:CRISTIAN VENEGAS DATE OF SERVICE: 04/07/19 SEX: M MEDICAL RECORD: [id number] DATE OF : [birth year] LOCATION:D[facility] AGE OF PATIENT: 73 ADMISSION DATE: 04/07/19 REFERRING PHYSICIAN: INTERPRETING PHYSICIAN: ANIL GASCA MD ECHOCARDIOGRAM REPORT ECHO CHARGES 4 ECHO COMPLETE Date: 04/07/19 CLINICAL DIAGNOSIS: CAD/ASSESS TRICUSPID REGURG HX OF HTN/CABG ECHOCARDIOGRAPHIC MEASUREMENTS (adult normal given) AC root (d.<3.7cm) 3.5 cm LV Septum d (<1.2 cm> 1.4 cm Valve Excursion 1.5 cm LV Septum (systole) 1.5 cm Left Atria (s.<4.0cm> 3.5 cm LVPW d(<1.2cm) 1.4 cm RV (d.<2.3cm) 3.0 cm LVPW (sytole) 1.5 cm LV diastole(<5.6CM) 3.6 cm MV E-F(>70mm/sec) cm LV systole 2.5 cm LVOT Diameter 1.6 cm MV exc.(>10mm) cm Est.ejection fraction (50-75%) % DOPPLER: LVIT cm/sec A 101.0cm/sec E 75.0 cm/sec LA cm/sec RVSP 18 mmHg LVOT 105 cm/sec AOP1/2T m/s Asc. Ao 124 cm/sec RVOT 86 cm/sec RA cm/sec PA 131 cm/sec AV Gradient Peak 6.14 mmHg AV Mean 3.32 mmHg AV Area 1.7 cm MV Gradient Peak 4.49 mmHg MV Mean 2.08 mmHg MV Area cm COMMENTS: Ironer Or Presser: 2 JOHN GONZALEZ Wire Harness Assembler: 3 Dr. Uribe TAPE# PACS Pericardial Effusion N DATE OF SERVICE: Adequate 2D, color flow imaging, spectral Doppler, and M-Mode LVH is present. LV internal dimension is normal. Wall motion is normal. EF is greater than or equal to 55%. Aortic valve is tricuspid. No evidence of stenosis by Doppler interrogation. Left atrium is normal. Mitral valve shows no prolapse. Trace MR. Right-sided chambers are grossly normal. Trace TR. TRANSINT:[id number] Voice Confirmation ID: [id number] DOCUMENT ID: [id number] ECHOCARDIOGRAM REPORT [id number] CRISTIAN VENEGAS,ANIL Carlson MD at 1440 CC: [id number] DICTATION DATE: 04/08/19 1303 [employer] RECORDS MANAGEMENT OFFICER: 04/08/19 1411 DEP CLI 04/07/19 [id number] [place] [address]
== END | disposition home or self-care (01) ==
LOC: D.HCCECHO 08:52
PROVIDERS: ATTEND Internal Medicine Interventional Cardiology
DX: I25.10 Atherosclerotic heart disease of native coronary artery without angina pectoris (principal)

== ENCOUNTER → 2019-08-13 13:33 | Outpatient (CLI) | payer MEDICARE ==
[2019-01-28 11:01] VITALS: BMI 29.7
== END | disposition home or self-care (01) ==
LOC: D.MRI 13:33
PROVIDERS: ATTEND Clinical Nurse Specialist Family Health
DX: M25.561 Pain in right knee (principal)

== ENCOUNTER → 2019-11-25 08:43 | Outpatient (CLI) | payer MEDICARE ==
[2019-01-28 11:01] VITALS: BMI 29.7
--- NOTE | 2019-11-26 08:47 | EC ---
PATIENT:CRISTIAN VENEGAS DATE OF SERVICE: 11/25/19 SEX: M MEDICAL RECORD: [id number] DATE OF : [birth year] LOCATION:D[facility] AGE OF PATIENT: 74 ADMISSION DATE: 11/25/19 REFERRING PHYSICIAN: INTERPRETING PHYSICIAN: ANIL GASCA MD ECHOCARDIOGRAM REPORT ECHO CHARGES 4 ECHO COMPLETE Date: 11/25/19 CLINICAL DIAGNOSIS: TACHYCARDIA, HX OF CAD/HTN/ PVD/MR/TR ECHOCARDIOGRAPHIC MEASUREMENTS (adult normal given) AC root (d.<3.7cm) 3.7 cm LV Septum d (<1.2 cm> 1.4 cm Valve Excursion 1.6 cm LV Septum (systole) 1.8 cm Left Atria (s.<4.0cm> 3.2 cm LVPW d(<1.2cm) 1.6 cm RV (d.<2.3cm) 2.8 cm LVPW (sytole) 1.8 cm LV diastole(<5.6CM) 4.1 cm MV E-F(>70mm/sec) cm LV systole 2.5 cm LVOT Diameter 1.9 cm MV exc.(>10mm) 1.4 cm Est.ejection fraction (50-75%) % DOPPLER: LVIT cm/sec A 109.0cm/sec E 61.0 cm/sec LA cm/sec RVSP 16 mmHg LVOT 126 cm/sec AOP1/2T m/s Asc. Ao 145 cm/sec RVOT 98 cm/sec RA cm/sec PA 141 cm/sec AV Gradient Peak 8.41 mmHg AV Mean 4.61 mmHg AV Area 2.4 cm MV Gradient Peak 6.94 mmHg MV Mean 3.42 mmHg MV Area cm COMMENTS: Axle Turner: 2 JOHN GONZALEZ Prorate Clerk: 3 Dr. Uribe TAPE# PACS Pericardial Effusion N DATE OF SERVICE: Adequate 2D, color-flow imaging, spectral Doppler, and M-Mode LVH is present. LV internal dimension is normal. Wall motion is normal. EF is greater than or equal to 55%. Aortic valve is sclerotic. No evidence of stenosis by Doppler interrogation. Left atrium is normal at 3.2 cm. Mitral valve shows no prolapse. Trace MR. Right-sided chambers are grossly normal. Trace TR. ECHOCARDIOGRAM REPORT [id number] CRISTIAN VENEGAS TRANSINT:[id number] Voice Confirmation ID: [id number] DOCUMENT ID: [id number] ANIL GASCA MD at 0847 CC: [id number] DICTATION DATE: 11/25/19 1335 COMMERCIAL ADMINISTRATOR: 11/25/19 1630 DEP CLI 11/25/19 [place] [id number] [place] [id number]
== END | disposition home or self-care (01) ==
LOC: D.HCCECHO 08:43
PROVIDERS: ATTEND Internal Medicine Interventional Cardiology
DX: I25.10 Atherosclerotic heart disease of native coronary artery without angina pectoris (principal)

== ENCOUNTER → 2020-06-06 09:07 | Outpatient (CLI) | payer MEDICARE ==
[2019-01-28 11:01] VITALS: BMI 29.7
== END | disposition home or self-care (01) ==
LOC: D.US 09:00
PROVIDERS: ATTEND Internal Medicine Interventional Cardiology
DX: I65.23 Occlusion and stenosis of bilateral carotid arteries (principal)

== ENCOUNTER 2020-08-19 16:03 | Emergency (ER) | payer MEDICARE ==
[~2020-08-19] VITALS: Ht 172.7 cm; Wt 96.8 kg
[2020-08-19 16:19] VITALS: Ht 172.7 cm; Wt 96.8 kg
[2020-08-19 17:01] LABS: BASOPHILS 0.9 % (0-2); EOSINOPHILS 2.8 % (0-7); HEMATOCRIT 43.6 % (42.0-54.0); HEMOGLOBIN 14.6 g/dL (13.5-17.5); LYMPHOCYTES 28.6 % (15-50); MCH 27.3 pg (26.0-34.0); MCHC 33.6 g/dL (31.0-37.0); MCV 81.3 fL (80.0-100.0); MEAN PLATELET VOLUME 8.9 fL (7.4-10.4); MONOCYTES 7.3 % (2-11); NEUTROPHILS 60.4 % (40-80); PLATELET COUNT 252 10x3/uL (130-400); RBC 5.36 10x6/uL (4.20-6.10); RDW 14.2 % (11.5-14.5); WBC 9.9 10x3/uL (4.8-10.8)
[2020-08-19 17:11] LABS: ANION GAP 12.4 mmol/L (8-16); CALCIUM 8.8 mg/dL (8.5-10.1); CARBON DIOXIDE 27.8 mmol/L (21.0-32.0); CREATININE - SERUM 1.4 mg/dL (0.6-1.3); POTASSIUM - SERUM 4.2 mmol/L (3.5-5.1)
[2020-08-19 17:17] LABS: ALBUMIN 3.6 g/dL (3.4-5.0); BILIRUBIN - TOTAL 0.83 mg/dL (0.2-1.3); PROTEIN - SERUM 7.5 g/dL (6.4-8.2)
[2020-08-19] MEDS ORDERED: CEPHALEXIN500 M1 PO (18:10)
[2020-08-19] MEDS ORDERED: FLORASTOR250 MG PO (18:10)
[2020-08-19] MEDS ORDERED: CLEOCIN HCL300 MG PO (18:10)
[2020-08-19 18:25] VITALS: BP 159/80
== END 2020-08-19 18:25 | disposition home or self-care (01) ==
LOC: D.ER 16:03
PROVIDERS: Family Medicine
DX: S91.204A Unspecified open wound of right lesser toe(s) with damage to nail, initial encounter (principal); L03.031 Cellulitis of right toe; E11.40 Type 2 diabetes mellitus with diabetic neuropathy, unspecified; I11.0 Hypertensive heart disease with heart failure; I50.9 Heart failure, unspecified; K21.9 Gastro-esophageal reflux disease without esophagitis; Z79.84 Long term (current) use of oral hypoglycemic drugs; X58.XXXA Exposure to other specified factors, initial encounter